=== PATIENT | male | born 1940 | race Caucasian/White ===

== ENCOUNTER 2017-04-17 09:25 | Inpatient (IN) | payer MEDICARE ==
[~2017-04-17] VITALS: Ht 172.7 cm; Wt 108.0 kg
[2017-04-20] MEDS ORDERED: GLIPIZIDE10 MG PO (17:27)
[2017-04-20] MEDS ORDERED: CARVEDILOL3.125 MG PO (17:28)
[2017-04-20] MEDS ORDERED: LIPITOR80 MG PO (17:29)
[2017-04-20] MEDS ORDERED: LISINOPRIL5 MG PO (17:29)
[2017-04-20] MEDS ORDERED: FLOMAX0.4 MG PO (17:29)
[2017-04-20] MEDS ORDERED: ALLOPURINOL100 MG PO (17:29)
[2017-04-20] MEDS ORDERED: OXYBUTYNIN CHLO15 MG PO (17:30)
--- NOTE | 2017-04-28 19:01 | NUR ---
PREADMIT PT CARE NOTE THIS IS A 77 YEAR OLD MALE PT SCHEDULED FOR A RIGHT TOTAL HIP REPLACEMENT ON 05/04/[address] JAZMYNE ACEVEDO. PT LIVES ALONE IN HIS RV [address]. STATES HE IS GETTING A SHOWER CHAIR AND A HANDHELD SHOWER HEAD. STATES HE IS NEEDING A FWW AND IN HOME MEDICAL IS WHERE HE WANTS IT FROM. HIS RV IS VERY CLOSE TO HIS GRANDSONS HOME AND HE WILL BE HELPING HIM. PT WANTS HIS PHYSICAL THERAPY SET UP FOR [facility] PT IN [facility] WITH JAIDEN FRANCO. DENIED FURTHER QUESTIONS, CONCERNS OR ISSUES, WILL FOLLOW HIM WHILE HE IS IN THE HOSPITAL.
[2017-05-04] MEDS ORDERED: LEVAQUIN750 MG PO (09:36)
--- NOTE | 2017-05-04 09:44 | NUR ---
05/04/17 0944 Vianca Melton 0931 TO PACU. AWAKENS TO VOICE. DENIES C/O. PROCEDURE CANCELLED. 0938 HR JIMBO TO 38, MONITOR AND BY PALPATION CONFIRMED. DENIES SOB, CHEST PAIN OR PRESSURE. 0940 HR INCREASED 70'S WITHOUT STIMULATION. CONT TO DENY C/O.
--- NOTE | 2017-05-04 10:07 | NUR ---
PT IS BACK TO FROM PACU. PT DID NOT RECIEVE HIS NEW HIP DUE TO A DRAINING PILONIADL CYST. HIS LAST SPINAL LEVEL WAS MEASURED AT A T10. PT HAS TO MEET DC CRITERIA IN ORDER TO BE DISCHARGED HOME. PT IS GIVEN COFFEE AND CHOCOLATE PUDDING. NO OTHER C/O'S AT THIS TIME. WILL REASSESS WITHIN THE HOUR.
--- NOTE | 2017-05-04 11:27 | NUR ---
PT REPORTS STILL BEING NUMB, HE IS UNABLE TO WIGGLE HIS TOES OR MOVE HIS LEGS. PT'S SPINAL LEVEL IS STILL AT A T10. NO C/O'S PAIN.
--- NOTE | 2017-05-04 11:30 | NUR ---
RN JUST IN TO SEE PATIENT. GOT REPORT FROM RN. PATIENT IN BED. PATIENT IS STILL NUMB. NO NEEDS AT THIS TIME.
--- NOTE | 2017-05-04 12:46 | NUR ---
PT SITTING UP FINISHING HIS LUNCH. NO C/O'S PAIN. SPINAL LEVEL REMAINS AT A T10. PT CAN SLIGHTLY MOVE HIS RIGHT LEG, BUT REPROTS THAT HE IS STILL NUMB FROM THE WAIST DOWN.
--- NOTE | 2017-05-04 13:40 | NUR ---
PT CAN WIGGLE HIS LEGS, BUT NOT HIS TOES YET. SPINAL LEVEL IS AT A T11. NO C/O'S AT THIS TIME. PT IS GOING TO BE TRANSFERRED TO ROOM 116 ON MS FOR OBSERVATION OVER NIGHT. BROTHER IS AT THE BEDSIDE AND WILL BE WALKING WITH US DOWN TO HIS ROOM.
--- NOTE | 2017-05-04 14:30 | NUR ---
PATIENT TRYING TO VOID. FRESH ICE WATER GIVEN NO NEEDS AT THIS TIME.
[2017-05-04] MEDS ORDERED: PLAVIX75 MG PO (15:16)
[2017-05-04] MEDS ORDERED: CLOPIDOGREL75 MG PO (15:20)
--- NOTE | 2017-05-04 17:40 | NUR ---
PATIENT RESTING IN BED WATCHING TV. ENCOURAGED PATIENT TO TRY TO VOID. NO OTHER NEEDS AT THIS TIME.
--- NOTE | 2017-05-04 18:01 | NUR ---
NOT OUT OF BED. EPIDURAL GIVEN THIS MORNING. LEGS NUMB. REGULAR DIET. TOLERATING WELL. UNABLE TO HAVE SURGERY D/T ABSCESS AT BASE OF SPINE. DRAINING SLIGHTLY SEROUS DRAINAGE. ROOM AIR. HOME TOMORROW. DUE TO VOID.
--- NOTE | 2017-05-04 19:50 | NUR ---
PT LAYING IN BED, WATCHING TV. FLAT AFFECT, BUT PLEASENT DEMEANOR. PT HAS NOT VOIDED SINCE ARRIVING TO THE FLOOR, BLADDER SCAN AT APPROX 1830 TODAY SHOWED >450MLS IN BLADDER, PER DAYSTAN RN. DR ACEVEDO NOTIFIED OF PT'S URINE RETENTION, NEW ORDER FOR HAIDER PLACEMENT RECIEVED, ALSO VERIFIED THAT PT IS ORDERED TO BE SALINE LOCKED. PT DENIES PRURITIS. DENIES PAIN.
--- NOTE | 2017-05-04 20:16 | NUR ---
EDUCATED PT ON ELIMINATION AND NEED FOR A HAIDER AT THIS TIME. ASSISTED PT TO BATHROOM TO ATTEMPT TO VOID BEFORE PLACING HAIDER. PT VERY UNSTABLE ON FEET. REQUIRED 2 PERSON ASSIST TO BATHROOM. PT USES RAINEY, BED, COUNTERS, TO STABLAIZE HIMSELF, WELL HIS CANE. PT UNABLE TO VOID. WILL PLACE HAIDER.
--- NOTE | 2017-05-04 20:44 | NUR ---
HAIDER PLACED, >850MLS URINE OUT AFTER PLACEMENT. PT ON AND OFF CONFUSED AT TIMES. UNAWARE THAT HE IS IN THE HOSPITAL IN [place]. STATES "IN [facility], I GUESS," WHEN ASKED WHERE HE IS BY THE RN. PT ALSO ASKING RN TO GET HIS "WATCH OUT OF THE DRESSER," WHILE POINTING AT A BLANK WALL. ATTEMPTED TO RE-ORIENT PT. PT IS PLEASENT AND COOPERATIVE. BED ALARM ON, DOOR AND CURTAINS OPEN FOR SAFETY. DR ACEVEDO NOTIFIED OF CHANGE IN LOC. NARCAN GIVEN TO RULE OUT NARCOTIC INDUCED CONFUSION.
--- NOTE | 2017-05-04 21:23 | NUR ---
NO CHANGE IN MENTATION SO FAR AFTER GIVING NARCAN. DR ACEVEDO NOTIFIED. CHECKED BS. BS 173, WHICH PT REPORTS IS "IN MY NORMAL RANGE." PT ON AND OFF ORIENTED, HE SEEMS WNL AT TIMES AND THEN WILL TALK ABOUT SOMETHING COMPLETLY NOT RELEVANT TO CURRENT TIME. WILL CONTINUE TO MONITOR CLOSELY. HE REMAINS PLEASENT AND COOPERATIVE. HAIDER DRAINING FREELY.
--- NOTE | 2017-05-04 21:35 | NUR ---
PT APPEARED TO BE SLEEPING. O2 SAT 88% ON RA, PLACED ON 1L O2 VIA NC, SATS CAME UP TO MID 90%'S. WILL CONTINUE TO MONITOR.
--- NOTE | 2017-05-04 22:55 | NUR ---
PT APPEARS TO BE SLEEPING. RR WNL AND UNLABORED. O2 SAT 93% ON 1L VIA NC. HR 86.
--- NOTE | 2017-05-05 00:02 | NUR ---
PT'S PULSE OXIMETER ALARMING. RN ENTERED PT'S ROOM. PULSE OXIMETER UNATTACHED TO PT, NC ON TOP OF PT'S HEAD. PT STATED "I HAVE TO GO PEE." PT RE-ORIENTED PT AND EXPLAINED THAT HE HAS A HAIDER CATH IN PLACE. PT RE-ORIENTED EASILY. RE-ADJUSTED PT IN BED, BED ALARM ACTIVATED FOR SAFETY. CALL LIGHT IN REACH. GAVE FRESH ICE WATER. ASSISTED PT WITH TV REMOTE. PT HAS NO FURTHER NEEDS.
--- NOTE | 2017-05-05 01:12 | NUR ---
PT AWAKE, LAYING IN BED, WATCHING TV. LOC WNL AT THIS TIME. ALERT AND ORIENTED X4. PT HAS NO NEEDS. CALL LIGHT IS IN REACH. HAIDER DRAINING FREELY.
--- NOTE | 2017-05-05 02:42 | NUR ---
NURSE NOTIFIED RE VITAL SIGNS/TEMP.
--- NOTE | 2017-05-05 02:46 | NUR ---
PT APPEARS TO BE SLEEPING. RR WNL AND UNLABORED. LAYING ON LEFT SIDE. O2 SAT 96% ON 1L VIA NC. LIGHTS AND TV OFF IN ROOM.
--- NOTE | 2017-05-05 04:26 | NUR ---
PT APPEARS TO BE SLEEPING. RR WNL AND UNLABORED. O2 SAT 97% ON 1L VIA NC. LIGHTS AND TV OFF IN ROOM.
--- NOTE | 2017-05-05 04:46 | NUR ---
BED ALARM ACTIVATED IN PT ROOM. PT WAS JUST MOVING HIMSELF AROUND IN BED AND REACHED OVER FOR HIS CELL PHONE. PT ALERT AND ORIENTED X4 AT THIS TIME. HE IS WATCHING TV. HAS CALL LIGHT IN REACH. NO FURTHER NEEDS AT THIS TIME.
--- NOTE | 2017-05-05 05:23 | NUR ---
PLACED HAIDER AND HAD 850MLS OF ORANGE COLORED URINE OUT. PT CONFUSED ON AND OFF BEGINNING OF SHIFT. NARCAN GIVEN ONE TIME TO CONFUSION. CONFUSION HAS CLEARED THIS MORNING, CURRENTLY PT IS ALERT AND ORIENTED X4. 2 PERSON ASSIST, UNSTABLE OF FEET LAST NIGHT. DENIES PAIN. TEDS, SCD'S IN PLACE. SALINE LOCKED, IV FLUSHES WELL. PT HAS BEEN PLEASENT AND COOPERATIVE. BED ALARM ON FOR SAFETY.
--- NOTE | 2017-05-05 07:30 | NUR ---
2 SHELLIE ASSIST FROM BED TO CHAIR. TALKED TO PATIENT ABOUT SHOWERING THIS AM AFTER BREAKFAST. WASH CLOTH FOR HANDS AND FACE.
--- NOTE | 2017-05-05 08:09 | NUR ---
PT ASSISTED UP TO RECLINER WITH 2PA AND CANE. PT REPORTS USING FURNITURE AND CANE TO AMBULATE THROUGH HOME. BREAKFAST SET UP FOR PATIENT. ABLE TO BEAR WEIGHT EVENLY. SPINAL COMPLETED AT 0800. WILL AWAIT DISCHARGE PLAN FROM SURGEON TODAY. NO COMPLAINTS.
--- NOTE | 2017-05-05 09:44 | NUR ---
ASSISTED PT INTO SHOWER WITH ARTIFICIAL LEATHER CALENDER OPERATOR. PT REPORTS HE "SITS IN RECLINER ALL DAY AT HOME WITH BATHROOM BREAKS ONLY" AND "I SHOWER WEEKLY". EDUCATED PATIENT ON HYGEINE IMPORTANCE AND NEED TO GET EXERCISE ROUTINELY TO PREVENT PNEUMONIA. PT RESISTANT TO EDUCATION. BROTHER HERE TO VISIT, BUT LEFT AND WILL RETURN AT 1015. PHYSICAL THERAPY PLANS TO WORK WITH PATIENT AT 1000. IV REMOVED. PT URNATED 325ML INTO URINAL.
--- NOTE | 2017-05-05 09:52 | NUR ---
patient up to shower with assist. patient dressed in cloths for home. waiting on PT. call button in reach. no other needs at this time.
== END 2017-05-05 10:50 | disposition home or self-care (01) | DRG 554 ==
LOC: DSVR 05-04 06:15 → MS 05-04 08:45
PROVIDERS: ADMIT Specialist
DX: M16.12 Unilateral primary osteoarthritis, left hip (principal); E78.5 Hyperlipidemia, unspecified; I12.9 Hypertensive chronic kidney disease with stage 1 through stage 4 chronic kidney disease, or unspecified chronic kidney disease; E11.22 Type 2 diabetes mellitus with diabetic chronic kidney disease; N18.9 Chronic kidney disease, unspecified; Z79.4 Long term (current) use of insulin; L05.91 Pilonidal cyst without abscess
CPT/HCPCS: 01214; 97161; 99406; J0690; J1100; J2250; J2274; J2310; J2405; J2704; J2765; J3010; J7120

== ENCOUNTER 2017-05-27 08:09 | Day surgery (SDC) | payer MEDICARE ==
[~2017-05-27] VITALS: Ht 172.7 cm; Wt 108.0 kg
[~2017-05-27 08:09] MED LIST: ALLOPURINOL100 MG PO; CARVEDILOL3.125 MG PO; CLOPIDOGREL75 MG PO; FLOMAX0.4 MG PO; GLIPIZIDE10 MG PO; LEVAQUIN750 MG PO; LIPITOR80 MG PO; LISINOPRIL5 MG PO; OXYBUTYNIN CHLO15 MG PO; PLAVIX75 MG PO
--- NOTE | 2017-05-27 09:30 | NUR ---
05/27/17 0929 Gabbie Ceja 0953-PATIENT ARRIVED TO PACU ON 6L OM O2 SAT 96% PATIENT NONAROUSABLE SR. 0925-PATIENT REACTIVE TO VOICE BP INCREASING TO 90'S REACHING FOR MASK EDUCATED ABOUT LEAVING HAND DOWN. DROWSY
--- NOTE | 2017-06-03 10:10 | OR ---
[facility] [address], [place] [address] Signed DATE OF OPERATION: 05/27/2017 SURGEON: Angela Melgoza MD PREOPERATIVE DIAGNOSIS: Pilonidal cyst. POSTOPERATIVE DIAGNOSIS: Pilonidal cyst. PROCEDURE: Pilonidal cystectomy. ESTIMATED BLOOD LOSS: None. INDICATIONS: Xavier is a 77-year-old, obese, diabetic gentleman who came in for his right hip replacement. When they were positioning him on the table, they realized he had a draining pilonidal cyst. Consequently, his hip replacement was canceled and he was asked to see me as a general surgeon for treatment of his pilonidal cyst. In the office, he comes with his four-point cane. We looked at the area and you could see the pit in the midline. Fortunately, it is not infected at this time. I explained to Xavier the nature of pilonidal cyst and need to excise that area with an elliptical incision and we will allow the wound to heal in secondarily from the bottom up. Once that is healed, he will be able to have his hip replacement. He understands there is risk of surgery including, but not limited to bleeding, infection, scarring, change in contour of the skin and recurrent pilonidal cyst. He had expressed understanding and wished to proceed. PROCEDURE NOTE: I met with Xavier in our preop area. We reviewed his above findings. After this, he was taken into the operating room and we placed him in the prone position with appropriate padding and monitoring. He was given monitored anesthesia care per our nurse tool and die designer. He was also given preoperative antibiotics and subcutaneous heparin. SCDs were utilized. We had him off the Plavix for 5 days. He was then prepped and draped in the usual sterile fashion. We could easily identify the pit in the midline of his gluteal crease. Local anesthetic was copiously injected in and around the lesion. A vertical elliptical incision was made around the lesion with the help of a 15 blade knife. This was carried down and around the lesion with the help of cautery all the way down to the level of the coccyx. All the tissue around it was quite healthy. Electronically Signed By: ANGELA MELGOZA MD 06/03/17 1010 PATIENT NAME: XAVIER FRANCO OPERATIVE REPORT DATE OF : 44 PHYSICIAN: ANGELA MELGOZA MD REPORT #: [id number] REPORT IS CONFIDENTIAL AND NOT TO BE RELEASED WITHOUT AUTHORIZATION [facility] [address], [place] [address] Signed Fortunately, there was no sinus tracts that travelled off the midline. The entire specimen was thus removed. Some additional local anesthetic was injected in the base of the wound. After this, the wound was irrigated and suctioned out until clear. The wound was packed with saline soaked gauze and covered with a dry ABD and dry underwear. Xavier was then rotated onto his hospital bed and taken to the recovery room in stable condition. MD KYLE Mccarty/PAULINEL /[id number] cc: MD Diego PatelehMD Fidencio Jacques FNP Electronically Signed By: ANGELA MELGOZA MD 06/03/17 1010 PATIENT NAME: XAVIER FRANCO FREDERIC OPERATIVE REPORT DATE OF : 44 PHYSICIAN: ANGELA MELGOZA MD REPORT #: [id number] REPORT IS CONFIDENTIAL AND NOT TO BE RELEASED WITHOUT AUTHORIZATION
== END 2017-05-27 11:00 | disposition home or self-care (01) ==
LOC: DS 08:09 → OPS 08:09 → DS 08:45
PROVIDERS: Colon & Rectal Surgery
PROC: 0HB8XZZ Excision of Buttock Skin, External Approach (ICD-10-PCS; principal; 2017-05-27 08:45)
DX: L05.91 Pilonidal cyst without abscess (principal); I13.0 Hypertensive heart and chronic kidney disease with heart failure and stage 1 through stage 4 chronic kidney disease, or unspecified chronic kidney disease; E11.22 Type 2 diabetes mellitus with diabetic chronic kidney disease; N18.1 Chronic kidney disease, stage 1; I50.9 Heart failure, unspecified; K21.9 Gastro-esophageal reflux disease without esophagitis; E11.40 Type 2 diabetes mellitus with diabetic neuropathy, unspecified; M10.9 Gout, unspecified; G47.33 Obstructive sleep apnea (adult) (pediatric); E78.00 Pure hypercholesterolemia, unspecified; I25.10 Atherosclerotic heart disease of native coronary artery without angina pectoris; Z90.89 Acquired absence of other organs; Z88.0 Allergy status to penicillin; Z88.8 Allergy status to other drugs, medicaments and biological substances; Z98.890 Other specified postprocedural states; Z79.899 Other long term (current) drug therapy
CPT/HCPCS: 00910; 80048; 85025; 88304; J1644; J2250; J2704; J3010; J7120

== ENCOUNTER 2017-12-14 06:50 | Inpatient (IN) | payer MEDICARE ==
--- NOTE | 2017-12-01 15:14 | NUR ---
PATIENT HERE TODAY FOR PREADMISSION APPOINTMENT. HE IS SCHEDULED FOR A RIGHT TOTAL HIP REPLACEMENT ON 12/14/17. HIS GRANDSON IS WITH HIM TODAY AND STATES HE WILL BE THE ONE TO TAKE HIM HOME WHEN HE IS DISCHARGED. THE PATIENT REPORTS LIVING IN A 5TH WHEEL TRAVEL TRAILER AND HAS 4 STEPS INTO THE TRAILER AND 3 STEPS UP TO THE BEDROOM AND BATHROOM AREA. HE HAS A NEW FRONT WHEELED WALKER AT HOME. WE SPOKE REGARDING NEEDING A RAISED TOILET SEAT. HIS GRANDSON STATES HE CAN LOOK INTO THAT FOR HIM. HE REPORTS HAVING A SEAT IN THE SHOWER ALREADY. HE WOULD LIKE TO HAVE PHYSICAL THERAPY SET UP TO COME TO THE HOME FOR THE FIRST FEW WEEKS AND THEN TRANSITION TO THE PHYSICAL THERAPY IN [facility]. THIS INFORMATION WILL BE SENT TO DR KRISTINA LEBRON AND KAYCE PLANNING FOR FURTHER FOLLOW UP.
[~2017-12-14] VITALS: Ht 172.7 cm; Wt 98.9 kg
[~2017-12-14 06:50] MED LIST changes: +ASPIR-LOW81 MG PO; +CENTRUM SILVER1 EAC3 PO
--- NOTE | 2017-12-14 11:01 | NUR ---
12/14/17 1101 Rsoemary Abraham 1033 PT ARRIVES TO PACU, ORAL AND NASAL AIRWAY IN PLACE. SATS 100% ON 10L PER MASK, BREATHING EVEN AND NON LABORED. PLACED ON ALL MONITORS. CMS INTACT TO RIGHT LEG, FOOT COLD- SOCK AND BLANET APPLIED. BILATERAL SCD'S AND JANNIE HOES IN PLACE WITH ABDUCTOR PILLOW. 1042 XRAY COMPLETED. 1046 PT REACTIVE TO VOICE AND OPEN EYES, QUICKLY BACK TO SLEEP. ORAL AIRWAY REMOVED AT THIS TIME. NASAL IN PLACE DUE TO OBSTRUCTIVE SLEEP APNEA. 1053 CRYOCUFF PLACED TO RIGHT HIP, O2 DECREASED TO 6L PER MASK. PT MAINTAINING SATS OF 99%. PT DROWSY, AROUSES EASILY TO VOICE AND ANSWERING QUESTIONS WITH PROMPTING. DENIES PAIN, SPINAL LEVEL T9, NO MOVEMENT IN LOWER EXTREMITIES. NO CHANGE IN CMS. PT DENIES NAUSEA, CONTINUE TO MONITOR PT. ABD SOFT AND NON DISTENDED. PT BREATHING EVEN AND NON LABORED ALTHOUGH INTERMITTENT SNORING.
--- NOTE | 2017-12-14 11:19 | NUR ---
PT SEEMED ALERT, ORIENTED AND EXPRESSED GREAT CONFIDENCE IN DR ACEVEDO. HAD A GOOD CONVERSATION WITH PT, OVER ALL PT APPEARED TO BE PREPARED AND HAD FEW QUESTIONS. EXTENDED A BLESSING, WILL FOLLOW NEEDED
--- NOTE | 2017-12-14 11:54 | NUR ---
PT TO FLOOR FROM PACU AT 1130. RECIEVED REPORT AT BEDSIDE FROM CHRISTINA LANGE. PT AWAKE, ALERT, ORIENTED X 4. DENIES PAIN. ORIENTED PT TO ROOM, CALL SYSTEM. DRESSING TO RIGHT HIP C/D/I.
--- NOTE | 2017-12-14 12:47 | NUR ---
PT SITTING UP IN BED, EATING MASHED POTATOES AND APPLESAUCE, WELL A ROLL. PT DENIES NAUSEA. TOLERATING REGULAR DIET WELL. DENIES PAIN. PEDAL PULSES STRONG. NUMBNESS TO FEET, TOES, LOWER LEGS, AND APROXIMATELY 1/2 OF UPPER LEGS. GROSS MOVEMENT TO ANKLES, NOT YET ABLE TO WIGGLE TOES.
--- NOTE | 2017-12-14 13:47 | NUR ---
PT IN BED, ABLE TO WIGGLE TOES, MOVE ANKLES. PEDAL PULSES STRONG. RIGHT HIP DRESSING C/D/I. PT STILL HAS NUMBNESS TO LOWER LEGS AND FEET/TOES, SPINAL RESOLVING. PT REMAINS ON 2L 02 VIA WY, SAT 93%. DR. BRIDGES IN TO SEE PT.
[2017-12-14] MEDS ORDERED: SODIUM BICARBO650 MG PO (14:02)
[2017-12-14] MEDS ORDERED: OXYBUTYNIN CHLOR5 MG PO ×2 (14:03→15:53)
[2017-12-14] MEDS ORDERED: TAMSULOSIN HCL0.4 MG PO (14:04)
--- NOTE | 2017-12-14 15:09 | NUR ---
PT IN BED. ABLE TO MOVE TOES, FEET, ANKLES. HAS NUMBNESS TO FEET, TOES, LATERAL LOWER LEGS. SPINAL RESOLVING. PT DENIES URGE TO VOID. PT DENIES PAIN. DRESSING TO RIGHT HIP C/D/I. PEDAL PULSES STRONG, CAPILARY REFILL LESS THAN 3 SECONDS.
--- NOTE | 2017-12-14 15:54 | NUR ---
MED REC COMPLETE
--- NOTE | 2017-12-14 17:45 | NUR ---
PATIENT UNABLE TO VOID AT THIS TIME.
--- NOTE | 2017-12-14 18:13 | NUR ---
PT UNABLE TO VOID. BLADDER SCAN SHOWED 706. PLACED 16 FR HAIDER CATHETER, WHICH IS DRAINING DARK YELLOW URINE. PT TOLERATED PLACEMENT WELL. PT TOLERATING DIABETIC, CARDIAC DIET WELL. PT DENIES NAUSEA. DRINKING FLUIDS WELL. CIRCULATION AND MOVEMENT TO BLE INTACT, IS SENSATION. SPINAL RESOLVED.
--- NOTE | 2017-12-14 18:23 | NUR ---
PT DRINKING PO FLUIDS WELL. SALINE LOCKED IV.
--- NOTE | 2017-12-14 18:56 | NUR ---
PT HAD A RIGHT TOTAL HIP REPLACEMENT TODAY. HAD A DURAMORPH SPINAL. CMS NOW INTACT. PEDAL PULSES STRONG. DRESSING TO RIGHT HIP C/D/I. GOT UP WITH FWW WITH PHYSICAL THERAPY, AMBULATED WITH FWW FROM BED TO BATHROOM, THEN BACK TO BED. PT TOLERATED CARDIAC, ADA DIET VERY WELL. NO C/O NAUSEA. PT DENIED PAIN THROUGHOUT SHIFT. PT UNABLE TO VOID, 706 CC SHOWN ON BLADDER SCAN, 16 FR HAIDER CATHETER PLACED FOR URINARY RETENTION PER ORDERS. PT TAKING PO FLUIDS WELL, IV SALINE LOCKED.
--- NOTE | 2017-12-14 19:25 | NUR ---
PATIENT IS RESTING IN BED WITH EYES CLOSED. RR16. PULSE OX READINGS WNL.
--- NOTE | 2017-12-14 21:13 | NUR ---
UPON ENTERING THE ROOM THE PATIENT WAS RESTING WITH EYES CLOSED. PATIENT DID NOT RESPOND TO HIS NAME BEING CALLED. IN REPORT IT WAS RECVEIVED THAT PATIENT IS [place]. PATIENTS NAME CALLED VERY LOUDLY. PATIENT STILL DID NOT RESPOND. PATIENTS STERNUM THEN RUBBED. PATIENT OPENED HIS EYES SLIGHTLY. PATIENT REPOSITIONED IN BED AND SAT UP IN HIGH FOWLERS. PATIENT AGAIN APPEARED TO BE SLEEPING. PATIENTS STERNUM AGAIN RUBBED AND HIS NAME CALLED VERY LOUDLY. PATIENT STARTLED AWAKE. AFTER PATIENT WAS FULLY AWAKE PATIENT WAS ABLE TO PARTICIPATE IN ASSESMENT. PATIENT ASSESMENT COMPLETED. PATIENTS EVENING MEDICATIONS GIVEN PER ORDER. PATIENT DENIES ANY PAIN. VITALS TAKEN AND RECORDED. PATIENT HAS SCDS, TEDHOSE, HEEL PROTECTORS, AND WEDGE IN PLACE. CRYO REFILLED AND PLACED ON RIGHT HIP. PATIENTS DRESSSING ON RIGHT HIP IS CLEAN DRY AND INTACT. PATIENT HAS PULSE OX IN PLACE. PATIENT IS ON 2L VIA NC. PATIENT IS AAOX3. PATIENT HAS SCOPE PATCH BEHIND RIGHT EAR. PATIENT HAS HAIDER IN PLACE AND OUPUT IS QS. PATIENT DENIES ANY FURTHER NEEDS AT THIS TIME. CALL LIGHT IN REACH.
--- NOTE | 2017-12-14 22:37 | NUR ---
PATIENT IS RESTING IN BED WITH EYES CLOSED. PATIENTS BREATHING IS EVEN AND UNLABORED, RR 16. PULSE OX READINGS ARE WNL. CALL LIGHT IN REACH.
--- NOTE | 2017-12-15 01:46 | NUR ---
PATIENTS 0200 MEDICATIONS GIVEN PER ORDER. PATIENTS VITALS TAKEN AND RECORDED. PATIENT DENIES ANY PAIN AT THIS TIME. PATIENT REMAINS ON 2L VIA NC. PATIENT REPOSITIONED IN BED. PATIENT CONTINUES TO HAVE TEDHOSE, SCDS, WEDGE, AND HEEL PROTECTORS IN PLACE. PATIENTS CRYO REFILLED WITH ICE PER DIRECTIONS. PATIENT DENIES ANY FURTHER NEEDS. PATIENT IS AAOX3. CALL LIGHT IN REACH. HAIDER IN PLACE OUPUT QS.
--- NOTE | 2017-12-15 04:15 | NUR ---
PATIENT IS RESTING IN BED WITH EYES CLOSED. BREATHING IS EVEN AND UNLABORED, RR 16. PULSE OX READINGS ARE WNL.
--- NOTE | 2017-12-15 05:36 | NUR ---
PATIENT RESTED WELL THROUGHOUT THE SHIFT. PATIENT IS ON A CARDIAC/ADA DIET AND TOLERATING IT WELL, NO COMPLAINTS OF NAUSEA. PATIENT IS ON PULSE OX. PATIENT IS ON 2L VIA NC. PATIENT HAS SCDS, HEEL PROTECTORS, AND TEDHOSE ON BILAT LOWER EXT. PATIENT HAS WEDGE IN PLACE WHILE IN BED. PATIENT IS SL AND IV FLUSHES WELL. PATIENT HAS CRYO APPLIED TO RIGHT HIP. PATIENTS DRESSING ON RIGHT HIP IS C/D/I, AND NO DRAINAGE IS NOTED. PATIENT HAS SCOPE PATCH BEHIND RIGHT EAR. PATIENT IS AAOX3 AND USES CALL LIGHT APPROPRIATELY. PATIENT HAS NOT BEEN OUT OF BED THIS SHIFT.
--- NOTE | 2017-12-15 06:29 | NUR ---
PATIENT REMAINS VERY DROWSY NUT IS EASY TO WAKE. PATIENTS HAIDER REMOVED. PATIENTS VITALS TAKEN AND RECORDED. PATIENTS MORNING MEDICATIONS GIVEN PER ORDER. PATIENT DENIES ANY PAIN. CRYO REFILLED WITH ICE AND APPLIED TO RIGHT HIP. PATIENT REPOSITIONED IN BED. PATIENT CONTINUES TO WEAR SCDS, TEDHOSE, AND HEEL PROTECTORS. WEDGE IN PLACE. PATIENTS DRESSING IS C/D/I AND NO DRAINAGE NOTED. NO FURTHER NEEDS NOTED. CALL LIGHT IN REACH.
--- NOTE | 2017-12-15 06:59 | NUR ---
PATIENT HAS LOW URINE OUPUT. PLACED CALL TO MD. NEW VERBAL ORDERE RECEIVED. VERIFIED ORDER USING THE READBACK METHOD. WILL PUT ORDER INTO PLACE.
--- NOTE | 2017-12-15 07:37 | OR ---
[facility] [address], [place] [address] Signed DATE OF OPERATION: 12/14/2017 SURGEON: Ruth Valenzuela MD PREOPERATIVE DIAGNOSIS: Degenerative joint disease, right hip. POSTOPERATIVE DIAGNOSIS: Degenerative joint disease, right hip. PROCEDURE PERFORMED: Right total hip arthroplasty. FLOUR MIXER: AMANDA Estrada. Elsie was present in critical positioning, retraction, and wound closure. ANESTHESIA: Spinal. BLOOD LOSS: 200 mL. IMPLANTS: Secure-Fit advanced size 8 stem, 60 PSL cup, +0 ceramic head. BRIEF HISTORY: Nitish is a 77-year-old gentleman with pain and stiffness in his hip. Risks and benefits of operative treatment discussed with him and he elected to proceed. DESCRIPTION OF PROCEDURE: Once consent was obtained, he was taken to the operating room. After adequate anesthesia was placed in left lateral decubitus position, all downside pressure points well padded. The right hip was prepped and draped in standard sterile fashion. After placing an axillary roll, the hip was approached through an anterior lateral approach and a 6-inch incision was centered over the trochanter. This carried through skin and subcutaneous tissue. IT band was divided longitudinally. The vastus lateralis was then split from the tip of the trochanter distally and elevated subperiosteally around the level of the lesser trochanter. The gluteus minimus and capsule were split sharply. Gluteus medius was split bluntly from the tip of the trochanter to the acetabular rim. Electronically Signed By: RUTH VALENZUELA MD 12/15/17 0737 PATIENT NAME: NITISH FRANCO OPERATIVE REPORT DATE OF : 44 REPORT #: [id number] PHYSICIAN: RUTH VALENZUELA MD PCP: RUTH VALENZUELA MD REPORT IS CONFIDENTIAL AND NOT TO BE RELEASED WITHOUT AUTHORIZATION [facility] [address], [place] [address] Signed This was then peeled off the anterior neck where large osteophytes were encountered. There was a large loose body in the anterior pouch. The periacetabular soft tissue was removed. The acetabulum was reamed starting at 44, went up to 60, 60 was found to be well fitting. The 60 cup was then impacted in 45 degrees of abduction and 15-20 degrees of anteversion. The bone was quite soft, so we placed two screws in the posterior quadrant. The acetabular liner was then impacted in position. We then removed the anterior and anterior inferior osteophytes sharply using the curved osteotome and the rongeur. Attention was then turned to the proximal femur, which was opened using a cookie cutter, followed by the Charnley awl. It was then sequentially reamed up to 9, 10 and broached up to an 8. The 8 was found to be quite well fitting. The trial location of the broach was left in position. Trial neck and head were placed. The hip was reduced. Excellent range of motion with 110 degrees of flexion and 45 of internal and external rotation with no impingement. Shuck test was negative. The hip was dislocated and trial was removed. The final stem was impacted until was the same level as the broach handle. The +0 ceramic head was then impacted onto the neck after cleaning it. The hip was then reduced taken through a range of motion as noted above and found to be stable. The wound was copiously with 2 L of antibiotic irrigation. The periarticular soft tissues were injected with 100 mL ropivacaine, Toradol mixture. The capsule was then closed using #1 Vicryl. The vastus and IT bands were closed independently using #1 Stratafix, subcutaneous tissue with 0 Stratafix, and the skin with vincent. The wound was dressed with a Mepilex Ag dressing and Opsite. He was placed in abduction pillow. Taken to recovery room in satisfactory condition. All sponge, needle, and instrument counts were correct. Ruth Valenzuela MD BA/MODL /[id number] Copies: ~ Electronically Signed By: RUTH VALENZUELA MD 12/15/17 0737 PATIENT NAME: NITISH FRANCO OPERATIVE REPORT DATE OF : 44 REPORT #: [id number] PHYSICIAN: RUTH VALENZUELA MD PCP: RUTH VALENZUELA MD REPORT IS CONFIDENTIAL AND NOT TO BE RELEASED WITHOUT AUTHORIZATION
--- NOTE | 2017-12-15 08:06 | NUR ---
THIS RN TO ROOM TO RECIEVE HAND OFF REPORT FROM CHRISTINA MORALES (PM RN). PT DIFFICULT TO AROUSE. PT OPENS EYES AFTER 10 MINUTES OF STERNAL RUB STIMULATION. PT ORIENTED TO PLACE AND EVENT BUT UNABLE TO TELL TIME, DATE, OR HIS OWN BIRTHDAY. SLURRED SPEACH NOTED. PT O2 SATURATION AT 85% WHEN THIS RN ENTERED ROOM. PT PLACED ON 2 L O2 BY NC. O2 SATURATION MAINTAINING AT 95%. MD NOTIFIED. MD TO ROOM TO SEE PT. MD STATES NO ACTION NEEDED AT THIS TIME. THIS RN RETURNS TO ROOM. PT NOW AWAKENS TO VOICE. CONTINUES TO BE CONFUSED AND DISORITNED NOTED ABOVE. ASSESSMENT DONE. CMS INTACT, PT REPORTS "NORMAL" FEELING IN HIS TOES. PT DENIES PAIN AND NAUSEA. PT DRIFTS BACK TO SLEEP FREQUENTLY, AWAKENS TO LOUD VOICE AND TOUCH. BREAKFAST AT BEDSIDE. PT STATES HE WOULD LIKE TO EAT BUT QUICKLY FALLS ALSEEP. MEDICATIONS GIVEN. BED RAILS UP. BED ALARM ON. CALL LIGHT WITHIN REACH.
--- NOTE | 2017-12-15 09:00 | NUR ---
DR. GOEL CONTACTED REGARDING PTS LOW BLOOD PRESSURE. CARVADIOL HELD. MD TO BEDSIDE. DR. GOEL AT BEDSIDE. THIS RN WITH MD. BLOOD PRESSURE RETAKEN, CONTINUES TO BE 70'S OVER 40'S. MD TAKES MANUAL BP AND STATES SYTOLIC'S ARE IN THE 60'S. REQUSETS ADDITIONAL NS BOLUS AND HAIDER CATHETER TO BE REPLACED. REQUESTS SCOPOLOMINE PATCH TO BE REMOVED. REMOVED BY THIS RN. CHARGE NURSE NOTIFIED. CHARGE NURSE TO START PIV AND PLACE HAIDER. STATES PT WILL BE TRANSFERED TO CCU. PIPELINER NOTIFIED. PT CONTINUES TO BE DIORIENTED AT TIMES. HEAD OF BED LOWERED. BED RAILS UP. CALL LIGHT WITHIN REACH. BED RAILS UP.
--- NOTE | 2017-12-15 10:00 | NUR ---
PLACED HAIDER CATHETER BACK. SENT URINE SAMPLE. STARTED NEW IV IN RIGHT HAND, FLUSHES WELL.
--- NOTE | 2017-12-15 10:42 | NUR ---
BOLUS' DONE INFUSING. BP NOW 111\59. PT AWOKE TO PUMP BEEPING AND WANTED TO GET UP. [id number] REORIENTED AND BACK TO SLEEP.
--- NOTE | 2017-12-15 10:58 | NUR ---
CCU RN CALLED TO GIVE REPORT. REPORT TAKEN. PT TRANSFERED TO CCU AT 1100.
--- NOTE | 2017-12-15 11:13 | NUR ---
77 YEAR OLD MALE PATIENT ADMITTED TO CCU FROM MED-SURG UNDER DR. GOEL AND DR. ACEVEDO WITH DX OF RTH ON 12/14, GEE/ HYPOTENSION/ AMS. PATIENT IS SOMEWHAT RESTLESS IS PULLING AT OXIMETER CORD AND IV TUBING. IS ABLE TO FOLLOW MOST COMMANDS. HAIDER CATH EMPTIENT FOR 10 ML. UROMETER PLACED. BP IS LOW. 80'S OVER 50'S. WILL NOTIFY DR. GOEL. IVF AT 125 ML/HR. O2 IS ON AT 2L PER NC. SCD'S ON, ABDUCTOR IN PLACE. JANNIE HOSE ON, HEEL PROTECTORS ON.
--- NOTE | 2017-12-15 11:19 | NUR ---
PT SON, SUSAN, CALLED AND UPDATED ON PT STATUS AND PLAN OF CARE. PT STATES HE IS PLANNING TO COME BY THIS AFTERNOON "ARROUND 6'OCLOCK." PTS SON VERBALIZES UNDERSTANDING OF UPDATE AND STATES HIS QUESTIONS HAVE BEEN ANSWERED.
--- NOTE | 2017-12-15 11:22 | NUR ---
PTS BLOOD PRESSURE UPON TRANSFER TO CCU WAS 83/50 MAP=58. CCU RN ASKED THIS RN TO NOTIFY . NOTIFIED AND STATES HE WILL PLACE ORDERS FOR CCU RNS.
--- NOTE | 2017-12-15 11:30 | NUR ---
ORDERS RECIEVED TO START LEVOPHED GTT BP REMAINS LOW. SEE VS CHARTED. BP IS BEING CHECKED Q 10 MIN. LEVOPHED GTT HUNG AT 4 MCG/MIN. PATIENT DENIES ANY TYPE OF PAIN. POLAR CARE CUBE FILLED WITH ICE, PAD IS ON RIGHT HIP WITH PILLOW CASE AND GOWN INBETWEEN SKIN AND PAD. MINIMAL SWELLING NOTED ON OF RIGHT HIP. NO DRAINAGE NOTED ON DRESSING.
--- NOTE | 2017-12-15 11:30 | NUR ---
IV DECREASED TO 75 ML/HR PER DR. GOEL ORDERS.
--- NOTE | 2017-12-15 12:00 | NUR ---
Joseluis PETTIT RN HERE TO PLACE PICC LINE.
--- NOTE | 2017-12-15 13:00 | NUR ---
IS ABLE TO FOLLOW MOST COMMANDS. NOT TRACKING WELL AT TIMES.
--- NOTE | 2017-12-15 13:36 | NUR ---
PICC INSERTION NOTE: ASKED BY DR. GOEL TO EVALUATE PATIENT FOR POTENTIAL PICC LINE PLACEMENT DUE TO NEEDING VASOPRESSOR THERAPY. AFTER REVIEWING THE CHART AND INTERVIEWING THE PATIENT, NO ABSOLUTE CONTRAINDICATIONS WERE IDENTIFIED. PATIENT'S GRANDSON SUSAN FRANCO WAS ALSO TALKED TO ON THE PHONE AND HE STATES HE HAS MEDICAL POA OVER HIS GRANDFATHER. VERBAL CONSENT WAS OBTAINED FROM PATIENT, ALTHOUGH IT WAS OF NOTE THAT PATIENT IS SLIGHTLY CONFUSED AT THIS TIME. CONSENT WAS ALSO OBTAINED FROM PATIEN'S GRANDSON OVER THE PHONE. PATIENT'S RIGHT ARM WAS EVALUTED FIRST AND THE BASILIC, BRACHIAL, AND CEPHALIC VEINS WERE ALL IDENTIFIED POTENTIAL SOURCES FOR A PICC LINE. THE BASILIC WAS ATTEMPTED FIRST, AND WAS NOTED TO BE GREATER THAN 8 FR VIA SITE RITE U/S. BASILIC VEIN WAS ACCESSED BUT UNABLE TO THREAD CATHETER INTO VEIN TWICE. THE CEPHALIC VEIN WAS THEN ATTEMPTED AND AGAIN IT TOOK 2 ATTEMPTS TO THREAD IV CATHETER INTO THE VEIN. AFTER THEADING THE IV CATHETER INTO THE VEIN, THE GUIDEWIRE, INTRODUCER AND PICC ALL INSERTED EASILY INTO THE VEIN WITHOUT DIFFICULTY. THE [employer] TIP VERIFICATION MAGNET WAS UTILIZED AND SHOWED THE TIP TO BE TRAVELING IN THE APPROPRIATE DIRECTION. A CHEST XRAY WAS TAKEN AND SHOWED THE TIP TO BE TRAVELING ACROSS TOWARDS THE LEFT, AND NOT IN THE APPROPRIATE SPOT FOR A PICC. THE PICC WAS THEN PULLED BACK AND STERILY RE-ADVANCED. A SECOND CHEST XRAY SHOWED IDEAL PLACEMENT IN THE SVC CONFIRMED BY DR. GOEL AND DR. ORLANDO. PATIENT TOLERATED THIS PROCEDURE WELL, AND IN FACT SLEPT THROUGH MOST OF IT. EDUCATION MATERIAL WAS LEFT WITH PATIENT AND PATIENT WAS ENCOURAGED TO ASK QUESTIONS REGARDING HIS PICC LINE.
--- NOTE | 2017-12-15 14:00 | NUR ---
SPONGE BATH GIVEN, DRAW SHEET CHANGED. DENIES PAIN.
--- NOTE | 2017-12-15 14:30 | NUR ---
RESTFUL. CONTINUE TO DENY PAIN. DRESSING TO RIGHT HIP INTACT. CRYO CUFF INTACT.
--- NOTE | 2017-12-15 15:41 | NUR ---
PHYS THERAPY HERE TO WORK WITH PATIENT.
--- NOTE | 2017-12-15 15:45 | NUR ---
STOOD AT BEDSIDE AND MARCHED IN PLACE WITH PHYS THERAPY. DENEIS FEELING LIGHTHEADED OR DIZZINESS. TOLERATED PHYS THERAPY WELL. DENIES PAIN. IS SOMEWHAT RESTLESS AT TIMES.
--- NOTE | 2017-12-15 16:24 | NUR ---
DR. ACEVEDO HERE TO SEE PATIENT. NO FUTHER ORDERS RECIEVED.
--- NOTE | 2017-12-15 16:45 | NUR ---
DR. GOEL UPDATED ON PATIENT. HAD EPISODE OF JIMBO W/PVCS. PATIENT IS W/O S/S.
--- NOTE | 2017-12-15 18:00 | NUR ---
LEVOPHED GTT OFF. DR. GOEL AWARE.
--- NOTE | 2017-12-15 19:22 | NUR ---
REPORT GIVEN. HOB ELEVATED.
--- NOTE | 2017-12-15 20:37 | NUR ---
PATIENT RESTING COMFORTABLY IN BED, BREATHING IS EVEN AND UNLABORED. O2 SATURATION IS 98% ON ROOM AIR. PATIENT DENIES PAIN AT THIS TIME. REPOSITIONED PATIENT IN BED. PATIENT DENIES NEEDS AT THIS TIME. ASSESSMENT DONE, DRESSING IS CDI, CMS INTACT. ALL ORDERS IN PLACE, CALL LIGHT WITHIN REACH.
--- NOTE | 2017-12-15 21:24 | NUR ---
PATIENT RESTING COMFORTABLY IN BED, BREATHING IS EVEN AND UNLABORED. O2 SATURATION IS 96% ON ROOM AIR. DENIES NEEDS AT THIS TIME, DENIES PAIN. CALL LIGHT WITHIN REACH, ALL ORDERS IN PLACE.
--- NOTE | 2017-12-15 22:00 | NUR ---
PATIENT RESTING IN BED, BREATHING IS EVEN AND UNLABORED. FLACC SCORE OF 0. CALL LIGHT WITHIN REACH, ALL ORDERS IN PLACE.
--- NOTE | 2017-12-15 23:39 | NUR ---
PATIENT RESTING COMFORTABLY IN BED, BREATHING IS EVEN AND UNLABORED. FLACC SCORE OF 0. CALL LIGHT WITHIN REACH, ALL ORDERS IN PLACE.
--- NOTE | 2017-12-16 00:21 | NUR ---
PATIENT RESTING COMFORTABLY, DENIES PAIN AT THIS TIME. DURING ASSESSMENT, PATIENT ID DISORIENTED TO PLACE AND STATES "WELL, I AM IN [place]." WHEN ASKED WHAT THE DATE IS, PATIENT STATES "IT IS November, TOMORROW IS September,." PATIENT UNDERSTANDS SITUATION OF HOSPITALIZATION. ALSO BEGAN TO FIDGIT WITH CORDS AND IV TUBING, EASILY RE-DIRECTED. PATIENT DENIES NEEDS AT THIS TIME. CALL LIGHT WITHIN REACH, ALL ORDERS IN PLACE. WITHIN VIEW OF RN FROM NURSE'S STATION.
--- NOTE | 2017-12-16 01:45 | NUR ---
PATIENT RESTING COMFORTABLY IN BED, BREATHING IS EVEN AND UNLABORED. FLACC SCORE OF 0. CALL LIGHT WITHIN REACH.
--- NOTE | 2017-12-16 03:04 | NUR ---
ASSISTED PATIENT TO BEDSIDE COMODE WITH 1PA/FWW. TOLERATING AMBULATION WELL, REQUIRES MINIMAL ASSISTANCE OUT OF BED. PATIENT UNABLE TO HAVE BOWEL MOVEMENT YET, IS PASSING FLATUS. NOW RESTING IN BED, BREATHING IS EVEN AND UNLABORED. DENIES FURTHER NEEDS, DENIES PAIN AT REST. CALL LIGHT WITHIN REACH, ALL ORDERS IN PLACE.
--- NOTE | 2017-12-16 04:30 | NUR ---
PATIENT RESTING COMFORTABLY IN BED, BREATHING IS EVEN AND UNLABORED. FLACC SCORE OF 0. CALL LIGHT WITHIN REACH.
--- NOTE | 2017-12-16 05:40 | NUR ---
RESTING COMFORTABLY, FLACC SCORE OF 0. CALL LIGHT WITHIN REACH.
--- NOTE | 2017-12-16 06:48 | NUR ---
PATIENT RESTING IN BED. DENIES PAIN AT THIS TIME, DENIES NEEDS. CALL LIGHT WITHIN REACH, ALL ORDERS IN PLACE.
--- NOTE | 2017-12-16 07:59 | NUR ---
REPORT RC'D FROM HOG COUNTER NURSE. PT RESTING IN BED WITH EYES CLOSED, NO ACUTE DISTRESS NOTED. NS INFUSING AT 75 ML/HR. SCD TO BLE, CRYO CUFF TO RIGHT HIP, AND ABDUCTION BRACE IN PLACE. LAST VITALS BP 117/67, MAP 79, HR 61, RR 13, AND SPO2 97 ON ROOM AIR.
--- NOTE | 2017-12-16 09:20 | NUR ---
PT RESTING IN BED COMFORTABLY. PICC LINE ASSESSED AND FLUSHED WITH HEPARIN, WNL. NS INFUSING AT 75 ML/HR. HAIDER IN PLACE, WNL, YELLOW COLORED URINE, AND QUANTITY SUFFICIENT. SCD, HEEL PROTECTORS, JANNIE HOSE, ABDUCTOR BRACE, AND CRYO CUFF IN PLACE. BREAKFAST AT ORDERED. PT'S BROTHER AT BEDSIDE.
--- NOTE | 2017-12-16 10:00 | NUR ---
PHYSICAL THERAPY IN ROOM TO AMBULATE PT. LINEN CHANGED AND ROOM CLEANED AT THIS TIME. DR. ACEVEDO IN ROOM TO ASSESS PT AND UPDATE PLAN OF CARE.
--- NOTE | 2017-12-16 10:50 | NUR ---
PT ASSISTED TO BSC, 1PA WITH FWW, TOLERATED WELL. PT ASSISTED BACK TO CHAIR AND AM ADLS PERFORMED.
--- NOTE | 2017-12-16 11:59 | NUR ---
DR. GOEL IN ROOM TO ASSESS PT AND UPDATE PLAN OF CARE.
--- NOTE | 2017-12-16 13:15 | NUR ---
IN ROOM TO REMOVED PT HAIDER. PT TOLERATED WELL. INSTRUCTED PT CALL WHEN FEELS THE NEED TO VOID. PT VERBALIZED UNDERSTANDING.
--- NOTE | 2017-12-16 13:25 | NUR ---
PT TRANSFERED TO [facility] SUR[facility]LO[facility] VIA CHAIR. ORIENTED TO ROOM AND CALL LIGHT. CRYO CUFF PLACED ON RIGHT HIP. PT DENIES NEED FOR PAIN MEDICATION AT THIS TIME. CALL LIGHT WITHIN REACH.
--- NOTE | 2017-12-16 13:47 | NUR ---
after speaking with pt regarding pain in right hip. determined pt was actually having pain with movement. rated pain 5/10. gave pt scheduled tylenol and 5mg oxycodone po.
--- NOTE | 2017-12-16 15:29 | NUR ---
PT CONTINUED TO COMPLAIN OF PAIN IN RIGHT HIP 10/29. GAVE 1 TAB OXYCODONE 5MG PO.
--- NOTE | 2017-12-16 15:59 | NUR ---
PT UP AND AMBULATING IN HALLWAY WITH PHYSICAL THERAPY. TOLERATING WELL.
--- NOTE | 2017-12-16 18:04 | NUR ---
pt hadnt voided since lund removal at 1315. pt unable to void. bladder scanned pt for 923ml. md contact. order given for straight cath. straight cathed pt using sterile technique. 1000ml drained of clear yellow urine. pt tolerated well.
--- NOTE | 2017-12-16 18:16 | NUR ---
pt transfered from ccu to medical floor. working with PT/OT. giving oxycodone for pain control. dressing c/d/i. pt unable to void after lund removal. straigt cath performed. 1000ml of clear yellow urine drained.
--- NOTE | 2017-12-16 21:30 | NUR ---
pt up to brp, voided and had small soft bm. back to bed, Requires 1-2 person assist and FWW, Back to bed, tolerated it well. Dressing in place R hip, cryocuff to area, heel protectors , wedge, elana hose, scds in place. Call light and fluids withing arms reach
--- NOTE | 2017-12-16 21:58 | NUR ---
PATIENT SETTLING IN FOR THE NIGHT. BLADDER SCAN NOT NEEDED AT THIS TIME PATIENT JUST VOIDED OVER 700MLS. PATIENT WAS HAVING 9/10 RT HIP PAIN WHEN AMBULATING TO THE BATHROOM. 10MG OXYCODONE GIVEN PO WITH 1GM PO TYLENOL. PATIENT HAS CRYO CUFF IN PLACE TO RT HIP, HEAL PROTECTORS ON. IV AND MIDLINE FLUSHED AND ARE WNL. CALL LIGHT IN REACH AND LIGHTS TURNED OUT AT PATIENT REQUEST.
--- NOTE | 2017-12-16 23:19 | NUR ---
PATIENT STILL AWAKE WATCHING TV. PAIN IS DOWN TO 4/10 AND PATIENT COMFORTABLE IF NOT MOVING AROUND A LOT. PATIENT TURNED OF TV AND SAID HE IS GOING TO TRY AND GET SOME SLEEP. LIGHTS TURNED DOWN AND CALL LIGHT IS IN REACH.
--- NOTE | 2017-12-17 01:30 | NUR ---
PATIENT CALLED TO USE THE URINAL AND VOIDED AND 850MLS. PATIENT HAS 9/10 RT HIP PAIN WITH MOVEMENT AND OXYCODONE 5MG X2 PO GIVEN. PATIENT REPOSITIONED AND WEDGE IS IN PLACE, HEAL PROTECTORS ARE ON, SCD'S ON, JANNIE HOSE TO RT LEG. PATIENT GOING TO TRY AND GET MORE SLEEP. CALL LIGHT IN REACH.
--- NOTE | 2017-12-17 03:00 | NUR ---
PATIENT RESTING QUIETLY, EYES CLOSED RESPIRATIONS EVEN AND REGULAR.
--- NOTE | 2017-12-17 03:15 | NUR ---
PATIENT CALL LIGHT ANSWERED TO USE THE URINAL. PATIENT HAD SOME DRIBBLING OF URINE AND HAD TO BE TURNED AND ATTENDS CHANGED. PATIENT RESTING NOW CALL LIGHT IN REACH.
--- NOTE | 2017-12-17 06:43 | NUR ---
PATIENT HAS SLEPT A FEW HOURS TONIGHT. 10MG OXYCODONE GIVEN X 3 THROUGH THE SHIFT WITH SOME RELIEF AND ABILITY TO SLEEP BETWEEN DOSES. PATIENT HAS HAD A LOT OF GAS THROUGH THE NIGHT AND IS VOIDING WELL UP TO ALMOST A LITER AT A TIME. PATIENT UP X 2 WITH 1PSBA AND FWW TO TRY AND HAVE A BOWEL MOVEMENT WITH ONLY A SMEAR RESULT. PATIENT UP IN THE RECLINER AT THIS TIME AND LAST MEDICATED CFOR PAIN JUST AFTER 6AM.
--- NOTE | 2017-12-17 09:50 | NUR ---
pt is sitting up in chair with feet elevated and call light in reach. pt complained of his hip feeling sore, I helped readjust him in the chair and readjusted his cryo. pt does not need anything else at the moment
--- NOTE | 2017-12-17 10:08 | NUR ---
PAIN IS STILL NOT WELL CONTROLLED AT THIS TIME. WILL CONTINUE TO WORK ON THAT. SBP WAS 101 MANUALLY. ALL LOBES ARE CLEAR, SOME EDEMA RIGHT HIP, NO OTHER EDMEA IN RIGHT LEG. RIGHT PEDIS PULSE +2, ABD SOUNDS ARE PRESENT, PT REFUSED MIRALAX THIS MORNING. DRESSING ON RIGHT HIP HAS SOME DRY SHADOWING ON IT. NO NEW CONCERNS AT THE MOMENT FOR THIS PT.
--- NOTE | 2017-12-17 12:00 | NUR ---
BS CHECKS HAVE BEEN D/C. PICC LINE TO BE PULLED. PT IS SITTING IN CHAIR WATCHING TV. NO NEW CONCERNS AT THIS TIME.
--- NOTE | 2017-12-17 12:30 | NUR ---
SPOKE WITH PATIENT IN ROOM. PATIENT LIVES IN [facility]. NORMALLY INDEPENDENT. HAS A GRANDSON CLOSE BY WHO WILL TRANSPORT HIM HOME AND TO PT. ALSO HE IS AVAILABLE TO HELP PATIENT IF NEEDS. PATIENT STATES HE HAS BUILT IN CHAIR AND HAND-HELD SHOWER HEAD IN SHOWER STALL. HE HAS FOUR STEPS UP TO HOME AND 3 SMALL STEPS INTO SLEEPING AREA. 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 PATIENT STATES HE HAS NEW 4WW WITH SEAT AT HOME. DISCUSSED THAT 2WW IS USUALLY WHAT IS USED POST-OP. HE STATES HE CAN BORROW HIS BROTHERS. HE STATES HE IS PLANNING ON OUTPATIENT THERAPY AT [facility] IN [place]. HE STATES HE DOES NOT WANT TO GO ANYWHERE ELSE BUT HOME AT DISCHARGE. CALLED [phone]. THEY TOOK INFORMATION AND SCHEDULED AN APPOINTMENT FOR 12/28/17 AT 1100. THEY REQUEST DISCHARGE INFORMATION FAXED TO [phone] WHEN AVAILABLE. UPDATED PATIENT AND STAFF ON THIS APPOINTMENT. SPOKE WITH PHYSICAL THERAPIST TAWNY REGARDING PATIENT HAVING A 4WW. SHE STATES SHE WILL DISCUSS THIS WITH HIM, AND HE MOST LIKELY CAN USE IT.
--- NOTE | 2017-12-17 14:00 | NUR ---
PT IS SITTING CHAIR. PAIN IS STILL A 5/10. PT IS PASSING MASS AMOUNTS OF GAS AND IS DOING THE SAME WITH PURPING. WILL CONTINUE TO MONITOR. URINE OUTPUT NEEDS TO BE INCREASED.
--- NOTE | 2017-12-17 14:36 | NUR ---
pt has no urinated in almost 6 hours pt was assisted to the bathroom where he was able to void urine but no BM just gas. pt is now resting in bed with call light in reach.
--- NOTE | 2017-12-17 16:00 | NUR ---
PAIN IS BETTER SINCE EARLY THIS AFTERNOON. PT ALSO WALED WITH PT. RIGHT HIP DRESSING IS D/I. EDEMA IS MINIMAL. PEDIS PULSES ARE +2 ON RIGHT FOOT. PT OVERALL IS DOING BETTER AT THIS TIME. NO NEW CONCERNS NOTED.
--- NOTE | 2017-12-17 17:43 | NUR ---
AT START OF SHIFT PAIN CONTROL WAS AN ISSUE. SINCE EARLY AFTERNOON PAIN IS WELL CONTROLLED WITH PRN PAIN MEDS AVAILABLE. URINE OUTPUT IS ADEQUATE ALL IN ALL. ALL LOBES ARE CLEAR, DRESSING ON RIGHT HIP IS D/I. NO EDEMA NOTED IN LOWER RIGHT LEG, PEDIS PULSE IS +2. JANINE HOSE IS ON, SCD'S ARE ON, KRYO IS ON. NO NEW CONCERN FOR THIS PT AT THIS TIME.
--- NOTE | 2017-12-17 18:37 | NUR ---
PT WAS NOT ABLE TO VOID FROM [phone]. MD GOEL IS AWARE. AN EARLIER BLADDER SCAN SHOWED ABOUT 180ML. MD GOEL IS AWARE. WILL CONTINUE TO MONITOR.
--- NOTE | 2017-12-17 19:20 | NUR ---
PATIENT REPORT GIVEN FROM CHRISTINA ADAMS. PATIENT CURRENTLY RESTING QUIETLY EYES CLOSED, RESPIRATIONS EVEN AND REGULAR. WILL RETURN TO PERFORM PM ASSESSMENT. CALL LIGHT IN REACH.
--- NOTE | 2017-12-17 20:15 | NUR ---
UP TO BRP WITH ONE ASSIST AND FWW, HAD SOME DIFFICULTY TRANSFERRING FROM THE BED TO STANDING POSITION, HELPFUL. VOIDED, BACK TO BED. TOLERATED FAIR
--- NOTE | 2017-12-17 20:32 | NUR ---
PATIENT PM MEDS GIVEN. 1 NORCO PO GIVEN FOR 710 RT HIP PAIN WITH MOVEMENT. PATIENT SITTING IN BEED WATCHING TV. CALL LIGHT IN REACH AND WATER FILLED. PATIENT HAS NO OTHER NEEDS AT THIS TIME AND CALL LIGHT IS IN REACH.
--- NOTE | 2017-12-17 21:59 | NUR ---
VITALS AND I&OS DONE AND CHARTED. HELPED PT BACK TO BED FROM THE BATHROOM. HE HAD URINATED ON THE BATHROOM FLOOR. I CLEANED IT UP WITH THE RED WIPES. GOT HIM FRESH DRY SOCKS. BEDSIDE TABLE AND CALL LIGHT WITHIN REACH. PT NEEDS NOTHING ELSE AT THIS TIME.
--- NOTE | 2017-12-18 00:27 | NUR ---
PATIENT HAS BEEN MEDICATED FOR PAIN. WEDGE IN PLACE BETWEEN LE AND BILAT SCD'S ON. PATIENT'S LIGHTS DIMMED AND HE WOULD LIKE TO GET SOME SLEEP. CURRENT PULLED. PATIENT'S CALL LIGHT IS IN REACH.
--- NOTE | 2017-12-18 01:34 | NUR ---
PATIENT RESTING QUIETLY, EYES CLOSED, RESPIRATIONS EVEN AND REGULAR, PATIENT'S CALL LIGHT IS WITHIN REACH.
--- NOTE | 2017-12-18 03:11 | NUR ---
PATIENT CONTINUES TO REST QUIETLY, EYES CLOSED, RESPIRATIONS EVEN AND REGULAR, CALL LIGHT IS WITHIN REACH.
--- NOTE | 2017-12-18 05:42 | NUR ---
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
--- NOTE | 2017-12-18 06:01 | NUR ---
VITALS DONE AND CHARTED. BEDSIDE TABLE AND CALL LIGHT WITHIN REACH. PT NEEDS NOTHING ELSE AT THIS TIME.
--- NOTE | 2017-12-18 07:15 | NUR ---
RECIEVED BEDSIDE REPORT FROM CHRISTINA DURANT. PT HAS PERSONAL SUPPLIES AND CALL LIGHT IN REACH.
--- NOTE | 2017-12-18 07:32 | NUR ---
DR. ACEVEDO ON FLOOR. GAVE VERBAL ORDER TO CHANGE DRESSING TO RIGHT HIP.
--- NOTE | 2017-12-18 08:29 | NUR ---
ORDERED PATIENT'S BREAKFAST. PATIENT IS STILL SLEEPING.
--- NOTE | 2017-12-18 08:48 | NUR ---
PT REPORTED 7/10 PAIN TO HIS RIGHT HIP. GAVE NORCO 7.5/325 MG 1 TAB PO PRN. ATE 30% OF ADA BREAKFAST. DENIED NAUSEA. C/O HAVING "LOTS OF GAS", PT BURPING AND PASSING LARGE AMOUNTS OF GAS. NO BM THIS AM THUS FAR. PERSONAL SUPPLIES AND CALL LIGHT IN REACH. PT HAS SCDS, JANNIE HOSE TO RIGHT RIGHT LEG, HEEL PROTECTORS, ABDUCTION FOAM CUSHION IN PLACE. REPLACED DRESSING TO RIGHT HIP, NEW MEPILEX AND OPSITE PLACED. SMALL AMOUNT OF DRY BLOODY DRAINAGE PRESENT TO INCISION SITE. IGOR INTACT, INCISION SITE WELL APPROXIMATED.
--- NOTE | 2017-12-18 10:52 | NUR ---
PT AMBULATED IN HALLS WITH PAOLA, PHYSICAL THERAPIST. AMBULATED WITH FWW, TOLERATED WELL.
--- NOTE | 2017-12-18 14:59 | NUR ---
PT HAS REFUSED MULTIPLE ATTEMPTS BY WARP CHANGER TO GET UP TO THE TOILET. AT RN REQUEST, PT DID GET UP WITH DIFFICULTY AND PAIN. RN EDUCATED PT ON IMPORTANCE OF GETTING UP AND WALKING, CHANGING POSITON, AND IMPORTANCE OF SKIN CARE. PT STATED THAT "NEXT TIME HE LAYS DOWN, HE IS PUTTING A PILLOW UNDER MY ASS". RN EDUCATED PT ON IMPORTANCE OF NOT PUTTING A PILLOW UNDER HIM. PT HAD LARGE AMOUNT OF CLEAR MUCUS PER RECTUM. NO FECAL MATTER NOTED IN MUCUS. PT DID VOID FOR 550ML. PT AGREED TO WORK [facility].
--- NOTE | 2017-12-18 15:23 | NUR ---
WHILE GETTING PATIENT'S SHOWER READY HE SAID HE HAD TO GO TO THE RESTROOM. WHILE IN THE RESTROOM I CHANGED THE SHEETS ON HIS BED. NOW HE IS WORKING WITH PHYSICAL THERAPY WHEN SHE IS DONE I WILL GIVE HIM A SHOWER.
--- NOTE | 2017-12-18 16:43 | NUR ---
PT DISAGREEABLE THIS SHIFT, UNWILLING TO GET UP WITHOUT REPEATED REQUESTS. WORKED WITH PHYSICAL THERAPY X2. PT HOLDS URINE LONGER THAN 4HRS, BUT VOIDS LARGE AMOUNTS. CHRISTINA BARRERA DISCUSSED WITH DR ACEVEDO. BM CONSISTS OF CLEAR, MUCUS, LITTLE TO NO FECAL MATTER NOTED. PT IS PASSING FLATUS AND BELCHING OFTEN. PAIN CONTROLLED WITH PRN MEDS. PT DID GET IN SHOWER THIS SHIFT.
--- NOTE | 2017-12-18 17:00 | NUR ---
PATIENT TOOK A SHOWER I WASHED HIS HAIR AND HIS BACK AND HIS LEGS AND FEET AND HE DID THE REST.
--- NOTE | 2017-12-18 17:02 | NUR ---
PT'S GRANDSON CALLED FOR UPDATE. RN GAVE UPDATE ON CARE. GRANDSON STATED THAT FOR OVER A YEAR, PT HAS BEEN ON THE COUCH EXCEPT WHEN HE ABSOULUTLY HAD TO LEAVE THE TRAILER. HIS GRANDSON IS CONCERNED ABOUT ABOUT PT'S ABLITY TO CARE FOR SELF AT HOME. PT'S GRANDSON ASKED ABOUT REHAB, RN EXPLAINED SWING BED PROGRAM. GRANDSON HAS QUESTIONS FOR DISCHARGE PLANNING. PAIN CONTROLED WITH SCHEDULED TYLENOL AND PRN OXYCODONE. PRN OXYCODONE GIVEN TO REDUCE DAILY ACETAMENIPHEN INTAKE. PT UP TO SHOWER AFTER MULTIPLE ATTEMPTS. PT HOLDS URINE FOR EXTENDED PERIODS, BUT VOIDS SIGNIFICANT AMOUNTS WHEN HE DOES VOID. BM IS CLEAR MUCUS, BUT TOWARD END OF SHIFT DID TURN BROWNISH AND CONTAIN FECAL MATTER. PT ATTEMPTED TO PLACE PILLOW UNDER HIPS. RN DID NOT ALLOW PILLOW UNDER HIPS AND EXPLAINED RATIONAL. PT STATED THAT HE UNDERSTOOD. RN ENCOURAGED TURNING AND POSITIONAL CHANGES FREQUENTLY TO AVOID SORENESS. ALSO ENCOURAGED PT TO GET UP IN CHAIR.
--- NOTE | 2017-12-18 19:43 | NUR ---
RECIEVED REPORT FROM CHRISTINA GREEN. PATIENT RESTING QUIETLT IN HIS BED WATCHING TV AT THIS TIME. PATIENT HAS NO COMPLINTS OF PAIN AT THIS TIME AND APPEARS COMFORTABLE. CALL LIGHT IS WITHIN REACH.
--- NOTE | 2017-12-18 21:47 | NUR ---
PATIENT WAS UP AND AMBULATED TO THE BATHROOM AND VOIDED IN THE TOILET. PATIENT BACK IN BED AND SCD'S AND LEG WEDGE IN PLACE. PATIENT MEDICATED FOR 6/10 RT HIP PAIN. PATIENT'S PM MEDS HAVE BEEN GIVEN AND CRYO CUFF ICE FULL. BEDSIDE WATER AND ICE FULL. LIGHTS TURNED DOWN FOR PATIENT TO SLEEP. CALL LIGHT IS IN REACH.
--- NOTE | 2017-12-18 22:49 | NUR ---
PATIENT RESTING QUIETLY, EYES CLOSED, RESPIRATIONS REGULAR AND EVEN, CALL LIGHT IN REACH.
--- NOTE | 2017-12-19 00:15 | NUR ---
PATIENT RESTING QUIETLY, REPIRATIONS EVEN AND REGULAR, CALL LIGHT IN REACH.
--- NOTE | 2017-12-19 02:00 | NUR ---
PATIENT BACK IN BED AFTER AMBULATING TO THE BATHROOM TO URINATE AND THEN BACK TO BED USING FWW AND 1PSBA. PATIENT VOIDED 600MLS, BUT ALSO HAD A LARGE INCONTENENT AMOUNT OF CLEAR WATERY RECTAL MUCUS. PATIENT IS PASSING A LOT OF GAS AND IS BELCHING A LOT. PATIENT MEDICATED WITH 1 NORCO FOR 12/29 RT HIP PAIN AFTER RETURNING TO BED. PATIENT HAS JANNIE HOSE ON RT LEG, SCD'S BILAT, HEAL PROTECTORS BILAT, AND ORTHO WEDGE BETWEEN HIS LEGS. NEW [place] PLACED ON BED AND NEW ATTENDS IN PLACE. CRYO MACHINE WAS FILLED WITH NEW ICE AND PATIENT'S ICE WATER WAS REFILLED. PATIENT TRYING TO GO BACK TO SLEEP. CALL LIGHT IN REACH.
--- NOTE | 2017-12-19 05:07 | NUR ---
PATIENT CONTINUES TO REST QUIETLY, EYES CLOSED, RESPIRATIONS EVEN AND REGULAR. CALL LIGHT IN REACH.
--- NOTE | 2017-12-19 07:25 | NUR ---
REPORT GIVEN TO CHRISTINA CAZARES. PATIENT DID NOT DRINK MUCH WATER HE NORMALLY DOES AND WHEN HE WOKE UP THIS MORNING HE WAS NOT HUNGRY WHEN HE WOKE UP THIS AM WHICH IS ALSO NOT HIS NORM. PATIENT'S BELLY LOOKS DESTENDED AND HIS BOWEL TONES ARE LESS ACTIVE THAN THEY WERE AT THE BEGINNING OF THE SHIFT. PATIENT HAS BEEN HAVING LARGE AMOUNTS OF CLEAR LIQUID RECTAL MUCUS WHEN HE PASSES GAS, AND HE HAS BEEN HAVING A LOT OF FLATULENCE. PATIENT IS ALSO BELCHING A LOT. PATIENT DID NOT VOID THIS MORNING WHICH IS ALSO A CHANGE IN THE LAST 3 DAYS. PATIENT TRIED TO USE THE URINAL, THEN AMBULATED TO THE BATHROOM AND STILL COULD NOT URINATE. BLADDER SCAN WAS DONE X3 AND WITH RESULTS 193MLS,191MLS, AND 193MLS AGAIN. PATIENT HAS SLEPT PRETTY WELL THROUGH THE NIGHT, MEDICATED X3 FOR PAIN WHICH WAS EFFECTIVE EACH TIME. SAGE TAKING OVER CARE FOR PATIENT AT THIS TIME.
--- NOTE | 2017-12-19 07:28 | NUR ---
REPORT RECEIVED FROM CARLEEN VASQUEZ. ALL QUESTIONS ANSWERED. WHITE BOARD UPDATED. PATIENT AWAKE LYING IN BED. CONCERNS ABOUT DISTENDED ABDOMEN. POOR APPETITE THIS MORNING WHICH IS A CHANGE IN PATIENT STATUS. LOW UO D/T POOR ORAL INTAKE OF FLUIDS. PATIENT HAS BEEN HAVING LARGE BMs OF CLEAR MUCOUS-LIKE CONSISTENCY (INCONTINENT). WILL PASS ON TO HOSPITALIST IN CHARGE REPORT THIS MORNING.
--- NOTE | 2017-12-19 08:53 | NUR ---
ACTIVE BOWEL TONES, MODERATE ABDOMINAL DISTENTION, PATIENT UNCOMFORTABLE D/T DISTENTION IN ABDOMEN. FREQUENT BELCHING. CLEAR LUNGS. REGULAR HEART RATE/RHYTHM. APPETITE POOR D/T ABD DISTENTION.
--- NOTE | 2017-12-19 09:38 | NUR ---
NORCO GIVEN TO PATIENT TO PREMEDICATE BEFORE GETTING UP TO RECLINER. CRYOCUFF REPLACED ON HIP. NS INFUSING @75 (NEW ORDER FROM DR ACEVEDO). PLAN TO HAVE ABD CT THIS MORNING.
--- NOTE | 2017-12-19 10:13 | NUR ---
PT OFF FLOOR TO ABD CT SCAN. LINENS CHANGED AND ROOM TIDIED BY THIS RN. RECLINER SET UP TO RECEIVE PATIENT WHEN BACK TO ROOM.
--- NOTE | 2017-12-19 10:29 | NUR ---
PT BACK ON FLOOR NOW. UP IN RECLINER. PHYSICAL THERAPIST WORKING WITH PATIENT NOW. 10MG OXYCODONE GIVEN FOR PAIN IN RIGHT HIP.
--- NOTE | 2017-12-19 11:44 | NUR ---
PT UP IN RECLINER. FSBS 156. 1 UNIT INSULIN ADMINISTERED IN RLQ. EATING LUNCH NOW. WILL TRADE CHAIR OUT FOR YELLOW CHAIR THAT IS TALLER WHEN PATIENT UP.
--- NOTE | 2017-12-19 12:16 | NUR ---
SCANS SHOW SIGNS CONSISTENT WITH ILEUS. HOSPITALIST AND DR ACEVEDO NOTIFIED AND AWARE. NO CHANGES TO ORDERS.
--- NOTE | 2017-12-19 12:56 | NUR ---
PT UP TO BATHROOM. EXCHANGED RECLINERS. PULL CORD IN REACH FOR PATIENT TO CALL WHEN FINISHED IN BATHROOM. ATTENDS REMOVED. NO MUCOUS BM NOTED IN ATTENDS.
--- NOTE | 2017-12-19 13:17 | NUR ---
PT UP IN YELLOW RECLINER NOW. TALKING WITH FAMILY ON THE PHONE. TYLENOL GIVEN PER SCHEDULE.
--- NOTE | 2017-12-19 13:57 | NUR ---
PT COMPLAINED THAT THE RECLINER WAS UNCOMFORTABLE. TRANSFERRED PATIENT TO BED. ALL RAILS UP. CALL LIGHT IN REACH. CRYOCUFF AND SCDs ON.
--- NOTE | 2017-12-19 15:48 | NUR ---
patient resting comfortably in bed watching television. abdomen feeling "better". right hip "sore".
--- NOTE | 2017-12-19 18:18 | NUR ---
PATIENT WORKED WITH PHYSICAL THERAPY THIS MORNING. TOLERATED MODERATELY WELL. NORCO/OXYCODONE PRN FOR PAIN. AVOID OXYCODONE D/T ILEUS FOUND ON ABD XRAY. FULL LIQUID DIET. NS @ 75. 1PA FWW. AMBULATED AGAIN THIS EVENING. NEW IV PLACED IN RFA. BROWN DIARRHEA BM TODAY. "CAMEL BLADDER" HOLDS URINE FOR LONG PERIODS. DRESSING ON RIGHT HIP C/D/I.
--- NOTE | 2017-12-19 18:51 | NUR ---
UP TO BATHROOM 1PA FWW. PATIENT HAVING LOTS OF FLATULENCE. INCONTINENT BOWEL. ATTENDS CHANGED. BROWN LIQUID STOOL. PATIENT ON COMMODE NOW. CALL LIGHT IN REACH.
--- NOTE | 2017-12-19 19:08 | NUR ---
PT IS AWAKE IN BED, HE WAS JUST UP TO THE RESTROOM. HE DENIES NEEDS AT THIS TIME. CALL LIGHT IS WITHIN REACH.
--- NOTE | 2017-12-19 21:02 | NUR ---
VITALS AND I&OS DONE AND CHARTED. FRESH ICE WATER GIVEN. BEDSIDE TABLE AND CALL LIGHT WITHIN REACH.
--- NOTE | 2017-12-19 21:41 | NUR ---
ADMINISTERED EVENING MEDICATIONS AND ASSESSED PT. RT HIP DRESSING IS CDI WITH SOME BRUSING NOTED. HE IS IN BED AND DENIES ANY PAIN AT THIS TIME WHILE STILL. ABD PILLOW AND HEEL PROTECTORS IN PLACE ALONG WITH SCDS. PT REPORTS BASELINE NUMBNESS IN BOTH FEET. PT HAD A BROWN BM AT THE START OF THE SHIFT AND REPORTS HE CONTINUES TO PASS GAS AND BOWEL TONES ARE ACTIVE. HE DENIES FURTHER NEEDS AT THIS TIME. CALL LIGHT IS WITHIN REACH.
--- NOTE | 2017-12-19 22:13 | NUR ---
PT IS RESTING WITH EYES CLOSED, RESPIRATIONS ARE EVEN AND NONLABORED. CALL LIGHT IS WITHIN REACH.
--- NOTE | 2017-12-19 23:07 | NUR ---
PT IS RESTING WITH EYES CLOSED, RESPIRATIONS ARE EVEN AND NONLABORED. CALL LIGHT IS WITHIN REACH.
--- NOTE | 2017-12-20 00:57 | NUR ---
PT IS RESTING WITH EYES CLOSED, RESPIRATIONS ARE EVEN AND NONLABORED. CALL LIGHT IS WITHIN REACH.
--- NOTE | 2017-12-20 01:45 | NUR ---
ENTERED PT'S ROOM WITH NEW IV BAG AND PT HAD INCONTINENT STOOL IN BED. CHANGED BEDDING AND ADMINISTERED OXYCODONE. FRESH ICEWATER AT BEDSIDE AND NEW ICE IN CRYOCUFF. PT DENIES FURTHER NEEDS AT THIS TIME.
--- NOTE | 2017-12-20 03:19 | NUR ---
PT IS RESTING WITH EYES CLOSED, RESPIRATIONS ARE EVEN AND NONLABORED. CALL LIGHT IS WITHIN REACH.
--- NOTE | 2017-12-20 03:55 | NUR ---
HELPED PT USE URINAL. RT HIP DRESSING REMAINS CDI. PT DENIES FURTHER NEEDS AT THIS TIME. CALL LIGHT IS WITHIN REACH.
--- NOTE | 2017-12-20 04:34 | NUR ---
PT IS RESTING WITH EYES CLOSED, RESPIRATIONS ARE EVEN AND NONLABORED. CALL LIGHT IS WITHIN REACH.
--- NOTE | 2017-12-20 05:35 | NUR ---
PT IS RESTING WITH EYES CLOSED RESPIRATIONS ARE EVEN AND NONLABORED. CALL LIGHT IS WITHIN REACH.
--- NOTE | 2017-12-20 06:07 | NUR ---
PT AMBULATES 1PA WITH FWW AND HAS NS INFUSING AT 75MLS/HR. HE HAD A LARGE BROWN RUNNY BOWEL MOVEMENT LAST NIGHT AND BOWEL TONES ARE ACTIVE. HE IS ALSO PASSING GAS AND BELCHING. HE WAS GIVEN 10MG OF OXYCODONE AT 0131 BECAUSE NOTES UNDER THE NORCO IN [place] STATES NOT TO EXCEED 3000MG OF TYLENOL AND PT HAS THAT AMOUNT OF TYLENOL SCHEDULED DAILY. DRESSING ON RT HIP REMAINED CDI THROUGH THE NIGHT. PT IS VOIDING QS. PT MAY BECOME SWING BED ON THURSDAY.
--- NOTE | 2017-12-20 06:28 | NUR ---
WOKE PT TO DO VS AND I&O'S AND TO ADMINISTER TYLENOL. HE DENIES NEEDS AT THIS TIME. CALL LIGHT IS WITHIN REACH.
--- NOTE | 2017-12-20 07:28 | NUR ---
PATIENT SITTING UP IN BED. PATIENT REFUSED TO WASH HANDS AND FACE WITH WARM WASH CLOTH. PATIENT CALL LIGHT IN REACH. FRESH ICE WATER AT BEDSIDE TABLE. NO OTHER NEEDS AT THIS TIME.
--- NOTE | 2017-12-20 07:40 | NUR ---
PATIENT AWAKE AT BEDSIDE REPORT FROM MARY VASQUEZ. WHITE BOARD UPDATED. FSBS 128. NO HUMALOG INSULIN COVERAGE NEEDED. NS INFUSING AT 75. CREATININE IMPROVED FROM 1.32 TO 1.28. TOLERATING FULL LIQUID DIET. MULTIPLE INCONINTENT BMs OVERNIGHT.
--- NOTE | 2017-12-20 08:30 | NUR ---
PATIENT IN BED. CRYOCUFF ICE REPLACED/CHANGED. PATIENT WATCHING TELEVISION. OXYCODONE GIVEN FOR 01/29 RIGHT HIP PAIN. BELCHING FREQUENTLY. PASSING SOME GAS. DRESSING RIGHT HIP C/D/I. NS INFUSING AT 75 INTO RFA IV. ABDOMEN MORE DISTENDED THAN YESTERDAY. TAUT. ACTIVE BOWEL TONES.
--- NOTE | 2017-12-20 08:49 | NUR ---
PATIENT STATES HE WOULD NOT LIKE A SHOWER TODAY, HE IS "NOT FEELING UP TO IT WITH THIS STOMACH ISSUE". RN NOTIFIED. NO OTHER NEEDS AT THIS TIME.
--- NOTE | 2017-12-20 10:24 | NUR ---
PT UP TO BATHROOM WITH JEMIMA VASQUEZ. URINATED LARGE AMOUNT AND LARGE LOOSE BROWN BM. NEW ATTENDS ON. AMBULATED TO END OF VAUGHN AND BACK TO ROOM. UP IN RECLINER NOW. GUM PROVIDED FOR ILEUS RESOLUTION. CALL LIGHT WITHIN REACH. LUNCH ORDERED.
--- NOTE | 2017-12-20 10:47 | NUR ---
PATIENT STATES HE IS IN PAIN. PATIENT STATES HIS PAIN WHEN LAYING IN BED IS SIGNIFICANTLY LESS THAN WHEN HE IS LAYING IN THE BEDSIDE RECLINER. RN NOTIFIED. DOCTOR IN ROOM. NO OTHER NEEDS AT THIS TIME.
--- NOTE | 2017-12-20 11:05 | NUR ---
PT UP TO BATHROOM. ATTENDS CHANGED. BACK TO BED NOW. CRYOCUFF IN PLACE.
--- NOTE | 2017-12-20 14:02 | NUR ---
PATIENT RESTING IN BED, CALL LIGHT IN REACH. FRESH ICE WATER AT BEDSIDE TABLE. NO OTHER NEEDS AT THIS TIME.
--- NOTE | 2017-12-20 14:37 | NUR ---
PT RESTING COMFORTABLY IN BED. AWAKENED TO VOICE. TYLENOL AND NABICARB GIVEN.
--- NOTE | 2017-12-20 17:45 | NUR ---
PATIENT HAVING BROWN LIQUID STOOL INCONTINENT. LOTS OF FLATUS AND BELCHING. GUM PROVIDED FOR PATIENT TO ASSIST WITH RESOLUTION OF ILEUS. HOLDS URINE FOR LONG PERIODS. MEPILEX AND OPSITE ON RIGHT HIP C/D/I. OXYCODONE X2 AND NORCO X1. NS @ 75 INFUSING INTO RFA. ACCU CHECKS WITH MEALS. FULL LIQUID DIET. LIKELY WILL SWING BED TOMORROW. 1PA FWW.
--- NOTE | 2017-12-20 19:15 | NUR ---
IN ROOM FOR REPORT, PT IS AWAKE IN BED. HE REQUESTED FRESH WATER. HE DENIES FURTHER NEEDS AT THIS TIME. CALL LIGHT IS WITHIN REACH.
--- NOTE | 2017-12-20 21:20 | NUR ---
VITALS AND I&OS DONE AND CHARTED. BLOOD SUGAR DONE WELL AND CHARTED. BEDSIDE TABLE AND CALL LIGHT WITHIN REACH. PT NEEDS NOTHING ELSE AT THIS TIME.
--- NOTE | 2017-12-20 22:01 | NUR ---
ADMINISTERED EVENING MEDICATIONS AND ASSESSED PT. RT HIP DRESSING HAS SOME LIGHT SHADOWING NOTED. ABD DEVICE, SCDS, AES, HEEL PROTECTORS AND CRYO CUFF ARE IN PLACE. PT WAS ADMINISTERED OXYCODONE FOR 8/10 PAIN. HIS ABDOMEN REMAINS FIRM AND HE CONTINUES TO BELCH AND PASS GAS. HE HAD 3 BROWN BM'S TODAY. HE IS READY FOR BED AND HAS FRESH ICEWATER AT BEDSIDE. CALL LIGHT IS WITHIN REACH.
--- NOTE | 2017-12-20 22:56 | NUR ---
PT IS RESTING WITH EYES CLOSED, RESPIRATIONS ARE EVEN AND NONLABORED. CALL LIGHT IS WITHIN REACH.
--- NOTE | 2017-12-21 00:52 | NUR ---
PT IS RESTING WITH EYES CLOSED, RESPIRATIONS ARE EVEN AND NONLABORED. CALL LIGHT IS WITHIN REACH.
--- NOTE | 2017-12-21 02:28 | NUR ---
PT IS RESTING WITH EYES CLOSED, RESPIRATIONS ARE EVEN AND NONLABORED. CALL LIGHT IS WITHIN REACH.
--- NOTE | 2017-12-21 04:03 | NUR ---
HELPED PT WITH HIS URINAL IN BED. CHANGED GOWN DUE TO URINE SPILLING ON IT. HELPED HIM REPOSITION IN BED. BEDSIDE TABLE AND CALL LIGHT WITHIN REACH. PT NEEDS NOTHING ELSE AT THIS TIME.
--- NOTE | 2017-12-21 04:15 | NUR ---
PT WOKE TO USE URINAL. HE STATES PAIN IS 8/10, ADMINISTERED NORCO. DRESSING IS DRY WITH SLIGHT SHADOWING. FRESH ICE IS IN CRYO AND FRESH ICEWATER AT BEDSIDE. PT DENIES FURTHER NEEDS AT THIS TIME.
--- NOTE | 2017-12-21 04:22 | NUR ---
VITALS AND I&OS DONE AND CHARTED. FRESH WATER GIVEN. BEDSIDE TABLE AND CALL LIGHT WITHIN REACH.
--- NOTE | 2017-12-21 05:11 | NUR ---
PT DID NOT HAVE ANY INCONTINENT STOOL LAST NIGHT. HE IS VOIDING QS URINE. ABDOMEN IS STILL FIRM BUT HE CONTINUES TO BELCH AND PASS GAS. HE REQUIRED NORCO ONCE AND OXYCODONE ONCE LAST NIGHT FOR 8/10 PAIN. AMBULATES 1PA WITH FWW. ACCUCHECKS ACHS, BG LAST NIGHT WAS 149 REQUIRING 1 UNIT SS INSULIN. PT IS ON A FULL LIQUID DIET, HE MAY BECOME SWING BED TODAY.
--- NOTE | 2017-12-21 05:52 | NUR ---
PT IS RESTING WITH EYES CLOSED, RESPIRATIONS ARE EVEN AND NONLABORED. CALL LIGHT IS WITHIN REACH.
--- NOTE | 2017-12-21 07:35 | NUR ---
Coop with assessment, in bed, dressing r hip with old shadowing, elana reina, scds, heel protectors and bonifacio gboldter in place, ivf infusing w/o problems, cbg 125, no need for ss insulin coverage, no c/o pain or n/v
--- NOTE | 2017-12-21 09:05 | NUR ---
Pt up in chair for breakfast, ate 100% clear liquid diet. Up to brp wtih one PA and FWW tolerated fair, passed large amount of rectal flatus and had large amount of clear rectal mucus, lotion to vidhi area. Back to chair, legs elevated. cryo cuff in place to R Hip. ivf infusing w/o problems. c/o milf behind the r knee pain, was medicated earlier. Denies need for pain med at this time.
--- NOTE | 2017-12-21 11:02 | NUR ---
pt walked with PT, tolerated well, used 1PA and FWW, gait belt, back to bed, cryocuff to r hip, elana hose,scds, abductor pillow and heel protectors in place. ivf infusing w/o problems, no c/o pain at this time
--- NOTE | 2017-12-21 11:08 | NUR ---
PATIENT RESTING IN BED, CALL LIGHT IN REACH. NO OTHER NEEDS AT THIS TIME.
--- NOTE | 2017-12-21 13:32 | NUR ---
PT RESTING IN BED, RESPONDED TO MY VOICE. HE IS ALERT, ORIENTED AND RATHER OPINIONATED ABOUT MOST EVERYTHING. HE COMPLAINED ABOUT HIS LUNCH BEING LATE-IT WAS ON THE SIDE TABLE NEXT TO HIM. HE SAID IT WAS PROBABLY SOUP-WHICH IT WAS. HE SAID HE WON'T EAT CHICKEN SOUP. PT APPARENTLY IS NOT FOND OF DIET HE IS ON, BUT DID GET HIM TO SMILE AND JOKE SOME. HE ALSO EXPRESSED DISPLEASURE WITH THE CHAIR IN HIS RM-TOO HARD. WILL SEE IF ANOTHER MAY WORK, I WILL PASS ON TO STAFF. EXTENDED A BLESSING, WILL FOLLOW NEEDED
--- NOTE | 2017-12-21 16:21 | NUR ---
PATIENT RESTING IN BED, WATCHING TV. SCD'S ON, ABDUCTION PILLOW IN PLACE. CRYO CUFF ON. CALL LIGHT IN REACH. NO OTHER NEEDS AT THIS TIME.
--- NOTE | 2017-12-21 17:00 | NUR ---
pt medicated with Oxycodone 10mg po c.o r hip pain, pt to be moved to room 114 t
--- NOTE | 2017-12-21 18:08 | NUR ---
PT MOVED TO ROOM 114, WALKED FROM ROOM 124 TO ROOM 114 WITH ONE ASSIST, GAIT BELT AND FWW, TOLERATED WELL. EDYENLTKatie IN BED, HAS BEEN UP 2 HOURS EACH MEAL UP IN CHAIR, HAS TOLERATED FAIR, WALKED WITH PT X2, TOLERATED WELL. HAS BEEN MEDICATED WITH OXYCODONE X2 PER R HIP PAIN WITH GOOD PAIN CONTROL, RECEIVED TYLENOL ATC SCHEDULED. BRUISING R ARM FROM PREVIOUS CL HEALING. DRESSING R HIP INTACT, TRACE EDEMA. JANNIE HOSE, HEEL PROTECTOR AND SCDS BILAT IN PLACE, CRYOCUF TO R HIP AREA. LEG ABDUCTOR IN PLACE. PT ON ROOM AIR. CONTINUES TO BE ON CLEAR LIQUID DIET, HAS TOLERATED 100% OF MEALS, NO N/V. PT COOPERATIVE WITH ALL PROCEDURES AND ASSESSMENTS
--- NOTE | 2017-12-21 19:15 | NUR ---
RECEIVED REPORT FROM CHRISTINA PRINCE DAYSSDFT. PT IN BED, WITH CALL LIGHT WITHIN REACH, SCD'S, HEEL PROCTORS IN PLACE, CRYO CUFF RESTING ON RIGHT HIP. PT DENIES NEEDS.
--- NOTE | 2017-12-21 22:52 | NUR ---
V/S AND I/O DONE AND CHARTED.
--- NOTE | 2017-12-21 23:58 | NUR ---
Patient is resting, no complaints.
--- NOTE | 2017-12-22 03:00 | NUR ---
PT COMPLAINED OF PAIN, MED WITH PRN OXYCODONE. ASSISTED PT TO USE THE URINAL HE HASN'T SINCE 2199. UNABLE TO VOID, SAID HE WOULD TRY LATER. PT CONTINUES WITH SCD'S, HEEL PROTECTORS, JANNIE ABBOTT, WEDGE, AND CRYO. VISITED WITH PT ABOUT EXPECTATIONS OF AMBULATION DURING THE DAY.
--- NOTE | 2017-12-22 06:00 | NUR ---
WOKE PT FOR THE SCHEDULED TYLENOL. ASSISTED WITH THE URNIAL, WAS UNABLE TO VOID. WILL HAVE BLADDER SCAN DONE.
--- NOTE | 2017-12-22 07:15 | NUR ---
BLADDER SCAN WITH "879" PER THE AUTOMATIC DEVELOPER. INSTRUCTED AUTOMATIC DEVELOPER TO GET PT UP AND SEE IF HE COULD VOID. AUTOMATIC DEVELOPER REPORTED THAT PT VOIDED 525 AFTER HE WAS GOTTEN UP. LILIAN AWARE OF THIS.
--- NOTE | 2017-12-24 07:27 | DS ---
[facility] [address], [place] [address] Signed ADMISSION DATE: 12/14/2017 DISCHARGE DATE: 12/22/2017 ADMISSION DIAGNOSIS: Degenerative joint disease, right hip. DISCHARGE DIAGNOSES: 1. Degenerative joint disease, right hip. 2. Acute renal failure, postop. 3. Postop ileus. PROCEDURE PERFORMED DURING THIS HOSPITALIZATION: Right total hip arthroplasty. BRIEF HISTORY: Xavier is a 77-year-old gentleman with a severe pain in his hip. He had undergone nonoperative treatment without substantial relief, wished to proceed with the total hip replacement. He was cleared by medicine service and underwent the above-named procedure. He tolerated this well, was taken to the recovery room and subsequently to orthopedic floor. He had excellent pain control with the spinal, however, his blood pressure trended quite low. Ultimately, he was placed in the ICU to support his blood pressure, which was thought to be secondary to the spinal. He did develop some acute renal failure with his creatinine going up to 3. IV fluids and blood pressure support resolved this. He was subsequently taken back to the orthopedic floor, where he was seen by Physical Therapy. He was very slow to mobilize and very reluctant to mobilize due to proceed pain control issues. He was placed on narcotics and no anti-inflammatories. He was continued on the gabapentin. He again was very slow to mobilize, very reluctant and refused to mobilize many times. Subsequently on postoperative day 5, he developed substantial abdominal distention and was passing gas and mucousy stool and was diagnosed with an ileus. He was placed on a clear liquid diet. He is slowly resolving ileus, but continues to be reluctant to move and he has very poor balance and strength. We will discharge him to swing bed status for continued inpatient rehab and will continue watching his ileus as it continues to improve. He will be discharged on his current medications. He will be continued on the Lovenox for DVT prophylaxis as well. This was maintained throughout his hospitalization along with SCDs and TEDs. Ruth Valenzuela MD Electronically Signed By: RUTH VALENZUELA MD 12/24/17 0727 PATIENT NAME: XAVIER FRANCO DISCHARGE SUMMARY DATE OF : 44 REPORT #: [id number] PHYSICIAN: RUTH VALENZUELA MD PCP: RUTH VALENZUELA MD REPORT IS CONFIDENTIAL AND NOT TO BE RELEASED WITHOUT AUTHORIZATION [facility] [address] [facility] [address] [place] [address] Signed /PAULINE /[id number] Copies: ~ Electronically Signed By: RUTH VALENZUELA MD 12/24/17 0727 PATIENT NAME: XAVIER FRANCO DISCHARGE SUMMARY DATE OF : 42 REPORT #: [id number] PHYSICIAN: RUTH VALENZUELA MD PCP: RUTH VALENZUELA MD REPORT IS CONFIDENTIAL AND NOT TO BE RELEASED WITHOUT AUTHORIZATION
== END 2017-12-22 07:55 | disposition swing bed (61) | DRG 469 ==
LOC: MS 06:50 → DS 06:50 → MS 11:20 → DS 11:54 → MS 11:54 → CCU 11:55 → MS 12-15 11:10
PROVIDERS: ADMIT Specialist
PROC: 0SR904Z Replacement of Right Hip Joint with Ceramic on Polyethylene Synthetic Substitute, Open Approach (ICD-10-PCS; principal; 2017-12-14 09:00)
PROC: 02HV33Z Insertion of Infusion Device into Superior Vena Cava, Percutaneous Approach (ICD-10-PCS; 2017-12-15)
DX: M16.11 Unilateral primary osteoarthritis, right hip (principal); G93.41 Metabolic encephalopathy; N17.9 Acute kidney failure, unspecified; K56.7 Ileus, unspecified; N99.0 Postprocedural (acute) (chronic) kidney failure; E11.22 Type 2 diabetes mellitus with diabetic chronic kidney disease; I12.9 Hypertensive chronic kidney disease with stage 1 through stage 4 chronic kidney disease, or unspecified chronic kidney disease; F17.220 Nicotine dependence, chewing tobacco, uncomplicated; N18.3 Chronic kidney disease, stage 3 (moderate); E78.5 Hyperlipidemia, unspecified; E79.0 Hyperuricemia without signs of inflammatory arthritis and tophaceous disease; R25.3 Fasciculation; T40.2X5A Adverse effect of other opioids, initial encounter; Y92.239 Unspecified place in hospital as the place of occurrence of the external cause; Z79.84 Long term (current) use of oral hypoglycemic drugs; Z79.02 Long term (current) use of antithrombotics/antiplatelets; Z79.82 Long term (current) use of aspirin; Z79.899 Other long term (current) drug therapy; Z88.0 Allergy status to penicillin; Z88.8 Allergy status to other drugs, medicaments and biological substances
CPT/HCPCS: 36415; 36569; 51702; 71045; 72170; 74022; 80048; 82570; 83735; 84300; 84540; 85025; 97110; 97116; 97161; 97166; 97530; 97535; C1776; G8978; G8979; J0690; J1100; J1650; J1720; J1815; J1885; J2250; J2274; J2405; J2704; J2765; J3010; J3475; J7030; J7040; J7120

== ENCOUNTER 2017-12-22 07:55 | Inpatient (IN) | payer MEDICARE ==
[~2017-12-22] VITALS: Ht 172.7 cm; Wt 98.9 kg
--- NOTE | 2017-12-22 07:30 | NUR ---
PATIENT IN BED, BS CHECK. SAT PATIENT UP IN BED FOR BREAKFAST. STAFF IN FOR MORNING ROUNDS. CALL LIGHT IN REACH
[~2017-12-22 07:55] MED LIST changes: +OXYBUTYNIN CHLOR5 MG PO; +SODIUM BICARBO650 MG PO; +TAMSULOSIN HCL0.4 MG PO
--- NOTE | 2017-12-22 08:31 | NUR ---
MED REC COMPLETE
--- NOTE | 2017-12-22 09:18 | NUR ---
PROVIDED PATIENT WITH MORNING MEDICATIONS. NEWLY TRANSITIONED TO SWING BED, DELAY IN MEDS BEING ADMINISTERED SECONDARY TO VERIFY PROCESS. PATIENT APPEARS AGITATED, AND RESTLESS IN BED, MUTTERING. PROVIDED PATIENT WITH EXPLANATION OF SWING BED ADMISSION PROCESS. PATIENT STATED " I DON'T CARE, I JUST WANT MY MEDICATIONS". PHONE CALL TO PHARMACY, MEDICATIONS VERIFIED. PHYSICAL THERAPY IN ROOM, PATIENT STATES " I CAN'T DO THERAPY BECAUSE OF HOW LATE MY MEDS WERE ADMINISTERED." REASSURED PATIENT THAT WOULD WAIT FOR PAIN MEDICAITON TO TAKE EFFECT BEFORE PHYSICAL THERAPY AND MADE POC FOR 0930 ALLOWING 30 MINUTES. PATIENT VERBALIZED UNDERSTANDING AND AGREED TO POC.
--- NOTE | 2017-12-22 09:41 | NUR ---
PATIENT UP WITH PHYSICAL THERAPY, APPEARS TO BE PARTICIPATING. PAIN WELL CONTROLLED, RATES PAIN 4/10 ON PAIN SCALE. ATE 100% OF LUNCH.
--- NOTE | 2017-12-22 09:45 | NUR ---
PATIENT UP IN BR WITH PT. I/OS CHARTED. DRAWSHEET CHANGED. CRYO FILLED, ROOM TIDIED. PATIENT AMBULATING HALLS WITH PT.
--- NOTE | 2017-12-22 10:30 | NUR ---
SPOKE WITH PATIENT IN ROOM. DISCUSSED TRANSITIONAL CARE PROGRAM. PATIENT HAS BROCHURE AT BEDSIDE. DISCUSSED HIS PARTICIPATION AND PROGRESSION NEEDS TO QUALIFY HE GOES. PATIENT STATES "YA, I'LL TRY WHEN I FEEL UP TO IT". AGAIN DISCUSSED HE NEEDS TO PARTICIPATE DAILY. DISCUSSED TO STAY UP ON PAIN CONTROL AND TO BE SURE TO DISCUSS SYMPTOMS IF HE ISN'T FEELING WELL. PATIENT GRUMPY WITH STAFF WHO CAME INTO ROOM TO SEE HIM.
--- NOTE | 2017-12-22 10:33 | NUR ---
MORNING ASSESSMENT AND TRASFER TO SWING BED DUE. THIS RN TO BEDSIDE. PT RETURNS FROM WORKING WITH PHYSICAL THERAPY. PT REPORTS ONGOING PAIN THAT IS 8/10, PT STATES PAIN IS TOLERABLE. PT USING THE WORD "SHIT" FREQUENTLY WITH CONVERSATION. PT STATES "YOU PEOPLE ARE ALL A PAIN IN THE ASS." PT REPORTS HE "HATES" BEING UP IN THE CHAIR AND THAT HE HAD TO STAY IN IT YESTERDAY FOR 2 HOURS AND HE IS "NOT HAPPY ABOUT IT AND NOT DOING THAT AGAIN TODAY." PT ENCOAURGED TO GET UP OFTEN POSSIBLE AND REMINDED TO WALK 4 TIMES TODAY. ASSESSMENT DONE. OCCUPATIONAL THERAPY TO BEDSIDE. PT WORKING WITH OT.
--- NOTE | 2017-12-22 10:58 | NUR ---
PHARMACY CALLED REGARDING POSSIBILITY OF GIVING PT NORCO WITH SCHEDULED TYLENOL. PHARMACIST STATES THIS WOULD NOT BE SAFE FOR PT. CALLED AND UPDATED ON PTS CONTINUED PAIN (NOW 03/01). MD STATES TO CANCEL SCHEDULED TYLENOL AND GIVEN NORCO INSTEAD. PHARMCY CALLED. ORDERS CHANGED. THIS RN TO PT ROOM. NORCO GIVEN ORDERED. PT STATES "I'M SICK OF BEING UP IN THIS CHAIR." PT ENCOURAGED TO STAY UP AND MOVE AROUND MUCH HE CAN TOLERATE. PT REFUSES TO REMAIN UP IN CHAIR. PT TRANSFERED BACK TO BED. CRYO CUFF, ABDUCTOR PILLOW, SCDS, BACK IN PLACE. BED RAILSUP. WATER REFILLED, PERSONAL BELONGINGS WITHIN REACH. CALL LIGHT WITHIN REACH.
--- NOTE | 2017-12-22 11:29 | NUR ---
THIS RN TO ROOM TO CHECK ON PT. PT UPDATED REGARDING DIET. PT CONTINUES ON FULL LIQUID DIET. PT FRUSTRATED THAT HE CAN'T HAVE "REALLY FOOD AND JUST THIS DOG FOOD INSTEAD." PT EDUCATION DONE REGARDING DIET ORDER AT THIS TIME. PT TALKING ON THE PHONE AND REQUESTS HIS FAMILY/FRIENDS BRING IN PIZZA FOR HIM. PT ADVISED THAT HE CANNOT EAT PIZZA AT THIS TIME BUT THAT THEY COULD BRING HIM A MILK SHAKE, GUM, OR HARD CANDIES. PT VERBALIZES UNDERSTANDING. BED RAILS UP. CALL LIGHT WITHIN REACH.
--- NOTE | 2017-12-22 11:29 | NUR ---
CONNECTED WITH PT HE WAS WALKING WITH P.T. PT WAS IN SOME PAIN, HE SAID HE IS REALLY TIRED OF IT. STAFF ALL WORKED TO ENCOURAGE PT. I WILL FOLLOW UP WITH PT AGAIN.
--- NOTE | 2017-12-22 12:36 | NUR ---
MEDICATION DUE. THIS RN TO BEDSIDE. PT CONTINUES TO REPORT 8/10 PAIN. SEE MAR FOR MEDICATION GIVEN. PT WATCHING TV. NO ADDIITONAL REQUESTS OR COMPLAINTS AT THIS TIME.
--- NOTE | 2017-12-22 13:39 | NUR ---
PATIENT SITTING UP IN BED, I/OS CHARTED. CHRISTINA HUERTA IN ROOM FOR VAUGHN AMBULATION. ENCOURAGING PATIENT TO USE URIANAL BERFOREHAND.
--- NOTE | 2017-12-22 13:40 | NUR ---
THIS RN TO BEDSIDE. PT ENCOUARGED TO GET UP AND WALK. PT AGREEABLE TO THIS PLAN. PT ASSISTED UP OUT OF BED. ENCOUARGED TO VOID BUT UNABLE TO URINATE AT THIS TIME. PT STATES "I JUST DON'T FEEL LIKE I NEED TO GO." PT AMBULATING AROUND UNIT WITH ASSISTANCE FROM TRAIN CREW MEMBER.
--- NOTE | 2017-12-22 14:54 | NUR ---
PT REPORTING 7/10 PAIN. PAIN MEDICATION GIVEN. RIGHT KNEE INCREASE IN SWELLING NOTED. KNEE MEASURES 51 CM OVER PATELLAR AREA, LEFT KNEE MEASURING AT 45.5 CM. MD NOTIFIED. PHYSICAL THERAPY AT BEDSIDE. PT REQUESTS 10 MORE MINUTES TO REST. BED RAILS UP. CALL LIGHT WITHIN REACH.
--- NOTE | 2017-12-22 15:00 | NUR ---
MD CALLED REGARDING RIGHT KNEE SWELLING. MD STATES NO ORDERS AT THIS TIME. PT HAS BASELINE ARTHRITIS AND NO ADDITIONAL NOTIFCATION TO MD IS NEEDED. PT UPDATED. STATESHIS QUESTIONS HAVE BEEN ANSWERED.
--- NOTE | 2017-12-22 17:35 | NUR ---
PATIENT UP IN BED EATING DINNER, THIS STRADDLE BUG AND RN BRADLEY ENCOURAGING PATIENT TO TRY AND URINATE AFTER DINNER "I'LL TRY" CALL LIGHT IN REACH
--- NOTE | 2017-12-22 18:55 | NUR ---
PT HERE FOR R HIP REPLACEMENT AND NOW ILLEUS. PT TRANFERED TO SWING BED TODAY. PRN PAIN MEDICATION. SCHEDULED TYLENOL DC'D TODAY, NOW ALTERNATING NORCO AND OXYCODONE. PHYSICAL THERAPY TODAY. FULL LIQUID DIET. PT USING CALL LIGHT APPROPRIATLY.
--- NOTE | 2017-12-22 19:02 | NUR ---
this rn to room to check on pt. PT REPORTS 5/10 PAIN " LONG I'M NOT MOVING." SEE MAR FOR MEDICATION GIVEN. BED RAILS UP. CALL LIGHT WITHIN REACH.
--- NOTE | 2017-12-22 19:20 | NUR ---
RECEIVED REPORT FROM FIFI HUERTA RN. PT IN BED WATCHING TV. CALL LIGHT WITHIN REACH. SCD'S, HEEL PROTECTOR, TEDS AND CRYOCUFF IN PLACE.
--- NOTE | 2017-12-22 22:00 | NUR ---
ASSESSMENT COMPLETE. FRESH WATER GIVEN. DISCUSSED HIS DAY, PAIN HOME LIFE. AWARE THAT WALKING IS IMPORTANT TO GET HIM TO BEING ABLE TO EAT FOOD. BOWEL SOUNDS ACTIVE. STATES PASSING GAS STILL. MED WITH OXYCODONE AT THIS TIME WELL PER HIS REQUEST. HAS NO OTHER NEEDS AT THIS TIME.
--- NOTE | 2017-12-22 23:56 | NUR ---
PT WITH RIGHT ARM UP OVER HIS FOREHEAD, EYES CLOSED, RESP EVEN AND UNLABORED.
--- NOTE | 2017-12-23 01:20 | NUR ---
PT CALLED REQUESTED HIS IV BE "TIED DOWN". THE TAPE HAD COME LOOSE. WRAPPED WITH COBAN. PT STATES HE WAS ASLEEP FOR AWHILE BUT NOT AWAY. SUGGESTED HE SHUT HIS TV OFF SINCE HE DOESN'T SLEEP WITH TV ON AT HOME, AND PERHAPS HE WOULD BE ABLE TO SLEEP. HE DID SHUT TV OFF. TURNED ROOM HEAT DOWN TO 72 FROM 74 WELL. CALL LIGHT WITHIN REACH. NO OTHER NEEDS.
--- NOTE | 2017-12-23 04:15 | NUR ---
PT WITH EYES CLOSED, RESP EVEN AND UNLABORED. DESPITE REPOSITIONING PT MORE CENTERED IN BED, HE TENDS TO LEAN OVER TO THE LEFT. HAS NOT USED CALL LIGHT SINCE HE WANTED TO HAVE THE IV RESECURED.
--- NOTE | 2017-12-23 05:09 | NUR ---
CHECKED IN ON PT. EYES CLOSED, RESP EVEN AND UNLABORED. TV CONTINUES TO BE OFF.
--- NOTE | 2017-12-23 06:36 | NUR ---
PT SLEPT WELL THROUGHOUT THE NIGHT, REQUIRED OXYCODONE 10 MG ONCE NEAR 2130; VOIDED 2 TIMES. PLEASANT, COOPERATIVE, ENCOURAGED TO AMBULATE THROUGHOUT THE DAY. STATES HE IS PASSING GAS; SL FLUSHES WELL. SATING WELL ON ROOM AIR.
--- NOTE | 2017-12-23 07:30 | NUR ---
BLOOD SUGAR TAKEN AND PATIENT SET UP FOR BREAKFAST. PATIENT LEANING TOWARD THE LEFT, STATING HIS RIGHT LEG IS REALLY ACHING. RN BRADLEY IN ROOM- ENCOURAGED HIM TO SIT UP STRAIGHT CALL LIGHT IN REACH NO OTHER NEEDS
--- NOTE | 2017-12-23 07:54 | NUR ---
PT REPORTING 5/10 PAIN. SEE MAR FOR MEDICATION GIVEN. PT EATING BREAKFAST. PT STATES HE HAS NO ADDITIONAL REQUESTS OR COMPLAINTS AT THIS TIME.
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
--- NOTE | 2017-12-23 09:40 | NUR ---
PT FINISHED WITH PHYSICAL THERAPY. THIS RN TO ROOM FOR MORNING ASSESSMENT AND MEDICAITONS. PT ASSESSED, CMS INTACT. DRESSINGS CDI. PT REPORTS 5/10 PAIN THAT "IS WORSE IF I MOVE." PT ENCOURAGED TO STAY UP IN CHAIR UNTIL MD COMES TO VISIT. PT IS EXPRESSES FRUSTRATION, "i HATE THIS DAMN CHAIR. I JUST WANT TO LIE IN BED." PT AGREES TO STAY IN CHAIR FOR A LITTLE BIT. BED SHEETS NOTED TO BE SATURATED. PT ASKED IF HIS DEPENDS IS WET AND ENCOUARGD TO VOID. PT REPLYS "I'M NOT CHECKING MY DEPENDS, THATS YOUR JOB." PT REMINDED THAT HE WILL NEED TO BE ABLE TO TAKE CARE OF HIMSELF BEFORE GOING HOME. PT CHECKS DEPENDS AND STATES THEY ARE NOT WET. THIS RN CHECKS AND FINDS THEY ARE WET. DEPENDS CHANGED. PT ENCOURGED TO VOID, PT REFUSES. CALL LIGHT WITHIN REACH. CRYO CUFF IN PLACE.
--- NOTE | 2017-12-23 10:11 | NUR ---
PATIENT UP IN ROOM WITH P/T. BACK IN CHAIR, LEGS ELEVATED WITH ICE PACK ON RT LEG. LINENS AND GOWN CHANGED. CALL LIGHT IN REACH
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
--- NOTE | 2017-12-23 11:20 | NUR ---
PATIENT UP IN CHAIR. CRYO CUFF PLACED ON HIP
--- NOTE | 2017-12-23 11:51 | NUR ---
MEDICATION DUE. THIS RN TO BEDSIDE. PT UP TO CHAIR EATING LUNCH. REPORTS 5/10 PAIN. SEE MAR FOR MEDICATION GIVEN. PT STATES HE HAS NO REQUESTS OR COMPLAINTS AT THIS TIME. CALL LIGHT WITHIN REACH.
--- NOTE | 2017-12-23 12:35 | NUR ---
THIS RN TO BEDSIDE. PT BACK FROM PHYSICAL THERAPY. SKIN ASSESSED, PER PHYSICAL THERAPY REQUEST. STAGE 1 PRESSURE ULCER TO LEFT BUTTOX. BARIER CREAM AND ALLEVYN APPLIED. PT ATTEMPTS TO HAVE BM. ONLY MUCOUS NOTED. PT BACK TO BED. CRYO CUFF. ABDUCTOR PAD, SCDS, AND HEEL PROTECTORS REAPPLIED. PHYSICAL THERAPIST NOTES THAT PT IS ABDUCTING RIGTH LEG AND HAVING TROUBLE KEEPING LEG STRAIGHT EVEN WHEN WALKING. PT ASKED TO ADDUCT LEG PT CRIES OUT IN PAIN. PT RESTING IN BED. BED RAILS UP. CALL LIGHT IN REACH. BELONGINGS IN REACH.
--- NOTE | 2017-12-23 13:24 | NUR ---
patient sleeping, call light in reach
--- NOTE | 2017-12-23 13:30 | NUR ---
PATIENT AWAKE IN BED, VITALS AND I/OS CHARTED. PATIENT REQUESTED MORE GLYCERIN SWABS CALL LIGHT IN REACH
--- NOTE | 2017-12-23 14:21 | NUR ---
THIS RN TO ROOM TO CHECK ON PT. PT RESTING WITH EYES CLOSED, RR = 18 BPM. MD HAS NOT COME TO SEE PT. MD CALLED AND STATES HE WILL BE IN TOMORROW. MD UPDATED REGARDING PHYSICAL THERPAY CONCERNS AND PAIN STATUS. NO ADDIITONAL ORDERS AT THIS TIME. BED RAILSUP. CALL LIGHT WITHIN REACH.
--- NOTE | 2017-12-23 15:33 | NUR ---
THIS RN TO ROOM TO CHECK ON PT. PT RESTING WITH EYES CLOSED. AWAKENS TO MOVMENTS IN THE ROOM. PT REPORTS 5/10 PAIN (SEE MAR FOR MEDICATION GIVEN). PT CONTINUES TO ADDUCT RIGHT HIP LEG. EDUCATION DONE. PT VERBALIZES UNDERSTANDING BUT IS UNABLE TO DEMONSTARTED MOVING HIS HIP. ABDUCTOR PAD READJUSTED. CMS INTACT. BOTH DRESSINGS REMAIN CDI. PT RESTING IN BED. NO REQUESTS OR COMPLAINTS AT THIS TIME. BED RAILS UP. CALL LIGTH WITHIN REACH. CRYO CUFF, SCDS IN PLACE. PT SUPPORTED IN CORRECT POSITION WITH PILLOWS.
--- NOTE | 2017-12-23 17:00 | NUR ---
PATIENT IN SHOWER, NAOMY MCQUEEN ASSISTING. THIS ASSOCIATE PROFESSOR OF PHILOSOPHY CHANGED DRAW SHEET AND PILLOW CASES, REFILLED CRYO CUFF AND GAVE FRESG\H ICE WATER
--- NOTE | 2017-12-23 18:45 | NUR ---
PT HERE FOR RIGHT HIP REPLACEMENT AND NOW ILLEUS. PT UP X3 TODAY, TWICE WITH PHYSICAL THERAPY. PT INCONTONANT TODAY X3. PRN PAIN MEDICAITON. FULL LIQUID DIET. NEW PRESSURE ULCER TO LEFT BUTTOX, ALLEVY APPLIED. RIGHT KNEE BEGAIN BLEEDING TODAY, MD AWARE, MEPLEX AND JADYN WRAP APPLIED PER MD ORDER. PHYSICAL THERAPY REPORTS PT IS HAVING TROUBLE WITH ADDUCTING HIS RIGTH HIP. MD AWARE. PT USING CALL LIGHT APPROPRIATLY.
--- NOTE | 2017-12-23 18:59 | NUR ---
THIS RN TO ROOM. ABDUCTOR PAD AND CRYO CUFF NOT IN PLACE. PT HAS LEGS CROSSED. PT EDUCATION DONE REGARDING POSITIONING OF HIS HIP AND THE IMPORTANCE OF KEEPING HIP/LEG STRAIGHT. PT VERBALIZES UNDERSTANDING BUT IS RELUCANT TO MOVE. ABDUCTOR PAD REPLACED. CRYO CUFF REPLACED. BED RAILS UP. CALL LIGHT WITHIN REACH.
--- NOTE | 2017-12-23 19:10 | NUR ---
RECEIVED REPORT FROM CHRISTINA HUERTA. PT IN BED, WATCHING TV. CALL LIGHT WITHIN REACH.
--- NOTE | 2017-12-23 20:22 | NUR ---
VITALS AND I&OS DONE AND CHARTED. FRESH WATER GIVEN, URINAL EMPTIED. BEDSIDE TABLE AND CALL LIGHT WITHIN REACH.
--- NOTE | 2017-12-23 22:15 | NUR ---
ASSESSMENT COMPLETE. SL FLUSHES WELL, IN 90'S RA, WEDGE SECRURED BETWEEN LEGS, JANNIE HOSE IN PLACE, ABOVE KNEE. SCD'S, HEEL PROTECTORS IN PLACE, CRYO WITH FRESH ICE. PT WATER REPLACED. NOTE THAT PT STATES HIS STOMACH FEELS "LESS HARD, THINK IT IS SOFTER", SAYS HE IS PASSING GAS STILL. BOWEL SOUNDS HYPOACTIVE, PRIOR SHIFT THIS NURSE WORKED, BOWELS WERE ACTIVE. PT AWARE THAT HE NEEDS TO BE UP WALKING MORE, BUT SAYS MY HIP AND KNEE (RIGHT) HURT, BUT STATES HE KNOWS THAT HE NEEDS TO. LOWELY MOVITVATED, PERFERS TO LAY IN BED, VS BEING UP IN CHAIR, PER REPORT FROM DAY NURSE, HE DOESN'T WISH TO WALK LIKE HE SOULD BE. RIGHT FOOT SLIGHTLY ABDUCTED, AND REPOSITIONED WITH PAIN COMPLAINT FROM PT, HE STATES IT JUST HAPPENS THAT WAY. ASKED PT IF PRIOR TO SURGERY, HE WALKED WITH FOOT SLIGHTYLY ABDUCTED, HE SAID AARTI. PT HAS NO OTHER COMPLAINTS, FOUND HIM TO BE PLEASANT, COOPERATIVE WITH A LESS THAN CHEERY VERBALIZATION, OFTEN COMPLAINING OR MAKING COMMENTS ABOUT WHAT WAS ON TV, R/T TO "BLACKS AND VENEGAS'S". TENDS TO SOUND GRUMPY AT TIMES. OFFERS NO OTHER COMLAINTS, CALL LIGHT WITHIN REACH.
--- NOTE | 2017-12-24 00:02 | NUR ---
PT WITH EYES CLOSED, RESP EVEN AND UNLABORED.
--- NOTE | 2017-12-24 02:24 | NUR ---
TEMPERATURE TAKEN BY MOUTH AND CHARTED. INFORMED HIS RN BARTOLO. FRESH ICE WATER GIVEN. ADDED FRESH ICE TO CRYO. BEDSIDE TABLE AND CALL LIGHT WITHIN REACH.
--- NOTE | 2017-12-24 02:25 | NUR ---
PT WAS WOKE UP TO TRY TO USE THE URINAL, AND A TEMP BY TUBE COVERER. PT OFFERED NO COMPLAINTS, THIS NURSE HAD CHECKED IN ON HIM NEAR 0205 AND HE WAS SLEEPING.
--- NOTE | 2017-12-24 04:00 | NUR ---
PT WITH EYES CLOSED, RESP EVEN AND UNLABORED. PT HAS TAKEN HIS COVERS OFF COMPARED TO AT 0200 WHEN HE WAS COVERED UP. SCD'S, WEDGE, JANNIE HOSE, CRYO, HEEL PROTECTORS IN PLACE. CALL LIGHT WITHIN REACH.
--- NOTE | 2017-12-24 06:20 | NUR ---
MINIBUS DRIVER AND RN ASSISTED PT UP TO THE BATHROOM, MOD ASSISTANCE GETTING LEGS OFF THE BED, AND STANDING POSITION. COMPLAINT OF PAIN WHEN HE FIRST STARTED WALKING WITH THE FWW, LARGE AMOUNTS OF BELCHING HAVE OCCURRED SINCE GETTING UP, ONCE PT SAT ON TOILET, HE IMMEDIATELY HAD LOOSE SOUNDING STOOL, LARGE AMOUNT OF GAS EXPELLED.
--- NOTE | 2017-12-24 06:23 | NUR ---
SLEPT WELL, HAD NORCO FOR PAIN X 1; NO NAUSEA, DID NOT URINATE UNTIL THIS TIME (623) AFTER CUSTOMER SERVICE COORDINATOR AND THIS NURSE ASSISTED PT WITH MODERATE HELP UP TO BATHROOM. HAS PASSED EXTREME LARGE AMOUNTS OF GAS EXPELLED, BELCHED MANY, MANY TIMES WELL. TOLERATED AMBULATION WITH SOME COMPLAINT OF PAIN WHEN HE FIRST STARTED WALKING. CONTINUES ON FULL LIQUID DIET.
--- NOTE | 2017-12-24 06:35 | NUR ---
HELPED PT TO THE BATHROOM AND BACK TO BED WITH HIS FWW, WITH THE HELP FROM CHRISTINA MCFARLAND. FRESH ICE FOR CRYO. EMPTIED ALL GARBAGES. BEDSIDE TABLE AND CALL LIGHT WITHIN REACH.
--- NOTE | 2017-12-24 06:42 | NUR ---
med with 2 oxycodone, for 8/10 right knee pain. states that the knee hurts much more than the hip, even though the hip does hurt. Abdomen soft, with active bowel sounds, compared to firm at the begining of shift with hypoactive bs. voided 900.
--- NOTE | 2017-12-24 07:00 | NUR ---
HANDOFF REPORT RECEIVED FROM SENIOR WEB ENGINEER RN. PT RESTING IN BED. PT DENIES NEEDS AT THIS TIME.
--- NOTE | 2017-12-24 07:38 | NUR ---
PER DR. ACEVEDO VERBAL ORDER JANNIE ABBOTT REMOVED. PT RESTING IN BED. PT DENIES NEEDS AT THIS TIME.
--- NOTE | 2017-12-24 08:54 | NUR ---
DID BLOOD SUGAR CHECK
--- NOTE | 2017-12-24 11:13 | NUR ---
GOT HIM AN ICE PACK ALSO FILLED HIS CRYO. REFILLED HIS CUP WITH ICE WATER. CHANGED BED LINENS.
--- NOTE | 2017-12-24 12:15 | NUR ---
PT BLOOD GLUCOSE 188, GIVEN 2 UNITS SS NOVOLOG. PT RESTING IN BED. PT DENIES OTHER NEEDS AT THIS TIME.
--- NOTE | 2017-12-24 13:28 | NUR ---
PT SITTING IN CHAIR, READING PAPER. PT STATED THAT HIS KNEE HURTS MORE THAN HIS HIP DOES NOW. PT SEEMED TO BE IN BETTER SPIRITS, LATER WAS UP WITH P.T., AND HE SAID HE WAS OK. P.T. STATED THAT HE WAS NOT STIFF YESTERDAY. WILL CONTINUE TO FOLLOW NEEDED
--- NOTE | 2017-12-24 13:59 | NUR ---
PT WITH MEDIUM BROWN LOOSE STOOL. PHYSICAL THERAPY IN ROOM TO WORK WITH PT. PT RATING PAIN 6/10 AT THIS TIME, PLAN FOR PAIN MEDICATION AFTER PHYSICAL THERPAY.
--- NOTE | 2017-12-24 15:00 | NUR ---
PT RATING PAIN 7-8/10 TO RIGHT KNEE, CURRENTLY WORKING WITH OCCUPATIONAL THERAPY. GIVEN 10 MG OXYCODONE. PT DENIES OTHER NEEDS AT THIS TIME.
--- NOTE | 2017-12-24 18:42 | NUR ---
PT ON ROOM AIR, LUNG SOUNDS CLEAR. PT TOLERATING FULL LIQUID DIET, DENIES NAUSEA, BOWEL TONES ACTIVE, HAD MULITPLE LOOSE BROWN STOOLS TODAY. PT UP WITH 1PA WITH FWW. PAIN CONTROLLED WITH PRN OXYCODONE. PT WORKED WITH PT/OT. VOIDING QS, WILL RETAIN AND THEN VOIDS LARGE AMOUNT AT A TIME. PER DR. ACEVEDO NO JANNIE HOSE. SCDS, CRYOCUFF, ABDUCTOR WEDGE. PT SALINE LOCKED.
--- NOTE | 2017-12-24 19:41 | NUR ---
PATIENT RESTING QUIETLY IN BED WATCHING TV. WILL BE BACK TO EVALUATE PATIENT PATIENT FURTHER AFTER THIS RN IS FINISHED GETTING REPORT.
--- NOTE | 2017-12-24 21:15 | NUR ---
PM ASSESSMENT DONE. PATIENT GIVEN 10MG PO OXYCODONE FOR PAIN OF 8/10 WITH MOTION. PATIENT'S CALL LIGHT IN REACH.
--- NOTE | 2017-12-24 21:19 | NUR ---
VITALS DONE AND CHARTED. FRESH ICE IN CRYO. BEDSIDE TABLE AND CALL LIGHT WITHIN REACH.
--- NOTE | 2017-12-24 22:30 | NUR ---
PATIENT AMBULATED AROUND THE NURSES STATION WITH FWW AND 1PSBA AND GAIT BELT AND TOLERATED WELL BUT HAD A LARGE LIDUID BM IN ATTENDS BEFORE GETTING BQCK TO BED. ATTENDS CHANGED, GOWN CHANGED, SCD'S CHANGED, LINEN CHANGED, AND PATIENT BACK IN BED. PATIENT HAS SCD'S ON AND ORTHO WEDGE BETWEEN HIS LEGS. PATIENT'S CALL LIGHT IN REACH.
--- NOTE | 2017-12-24 22:51 | NUR ---
HELPED PT GO FOR A WALK IN THE [facility] WITH HIS WALKER AND GAIT BELT. WE WERE GOING INTO THE BATHROOM IN HIS ROOM. HIS ATTENDS STARTED LEAKING LIQUID BM ON THE FLOOR. GOT HIM TO THE TOILET. CHANGED HIS GOWN ,SCD'S, SOCKS AND ATTEND. CLEANED HIM UP WITH BABY WIPES WHEN HE WAS DONE. CHRISTINA DURANT GOT HIM BACK TO BED. ALSO CLEANED UP THE FLOOR WITH RED WIPES.
--- NOTE | 2017-12-25 00:15 | NUR ---
PATIENT RESTING QUIETLY WITH EYES CLOSED, RESPIRATIONS EVEN AND REGULAR, VINCE'S CALL LIGHT IS IN REACH.
--- NOTE | 2017-12-25 02:08 | NUR ---
PATIENT CALLED AND WAS ASSISTED UP TO THE BATHROOM WITH FWW AND VOIDED 800MLS. PATIENT BACK TO BED. NEW ATTENDS ON. CRYO MACHINE ICE FILLED. SCD'S AND ORTHO WEDGE IN PLACE. PATIENT NOT IN NEED OF ANY PAIN MEDICATION AT THIS TIME. CALL LIGHT IS IN REACH.
--- NOTE | 2017-12-25 04:15 | NUR ---
PATIENT RESTING QUIETLY WITH EYES CLOSED, RESPIRATIONS EVEN AND REGULAR, AND PATIENT'S CALL LIGHT IS IN REACH.
--- NOTE | 2017-12-25 06:53 | NUR ---
PATIENT HAS HAD TORADOL 30MG IV X1 FOR PAIN LAST NIGHT AND NO C/O PAIN OTHER THAN THE ONE TIME. PATIENT USED CPAP FOR THE FIRST PART OF THE NIGHT AND THEN REFUSED TO WEAR IT FOR SEVERAL HOURS, BUT SAT STARTED TO DROP INTO THE MID 80'S AND WOKE THE PATIENT UP AND DISCUSSED THIS WITH HER AND SHE WORE THE CPAP FOR THE LAST SEVERAL HOURS OF THE SHIFT AND SATS STAYED ABOVE 95%. PATIENT PEG TUBE DRESSING REMAINS CLEAN DRY AND INTACT. PEG TUBE IRRIGATED WITH 50 MLS OF WATER WITH NO RESIDUAL AT 2200 AND 0600. PATIENT'S IV CONTINUES TO INFUSE AT NS AND IV SITES ARE WNL. PATIENT HAS COARSE LUNG SOUNDS THROUGHOUT WITH EXPIRATORY WHEEZES IN THE UPPER LOBES BILAT AND DEMINISHED IN THE LOWER LOBES BILAT. PATIENT'S CALL LIGHT IS WITHIN REACH AND THE HEAD OV HER BED REMAINS ELEVATED.
--- NOTE | 2017-12-25 07:20 | NUR ---
HANDOFF REPORT RECEIVED FROM ELEMENTARY SCHOOL COUNSELOR RN. PT RESTING IN BED. PT ASSISTED WITH ORDERING BREAKFAST. PT DENIES NEEDS AT THIS TIME.
--- NOTE | 2017-12-25 07:30 | NUR ---
PATIENT MEDICATED FOR PAIN ONCE PRIOR TO AMBULATING AROUND MED/SURGUNIT BEFORE BED. PATIENT HAS NOT NEEDED ANY OTHER PAIN MEDICATION THE REST OF THE NIGHT PATIENT HAD ONE LARGE BROWN LIQUID STOOL INCONTINENCE ATTHE END OF AMBULATION AND WAS CLEANED UP AND LINENES AND GOWN CHANGED. PATIENT HAS ON CLEAN ATTENDS . VOIDED ONCE AFTER BEDTIME 800MLS IN THE URINAL. PATIENT HAS HAD SCD'S AND ORTHO WEDGE IN PLACE ALL NIGHT. IV STILL FLUSHES FINE AND IS WNL. LUNGS CLEAR. PATIENT APPEARED TO HAVE SLEPT WELL MOST OF THE NIGHT.
--- NOTE | 2017-12-25 07:52 | NUR ---
1 PERSON ASSIST WITH FWW TO CHAIR FOR BREAKFAST. LEGS ELEVATED. CALL LIGHT IN REACH
--- NOTE | 2017-12-25 08:40 | NUR ---
PT SITTING IN CHAIR, EATING BREAKFAST. PT ON ROOM AIR, LUNG SOUNDS CLEAR. PT RATING PAIN 5/10 AT THIS TIME, PT PAIN MOSTLY IN RIGHT KNEE, LESS PAIN IN HIP, GIVEN 10 MG OXYCODONE IN PREPARATION FOR THERAPY. PT TOLERATING FULL LIQUID DIET, DENIES NAUSEA, BOWEL TONES ACTIVE, PT REQUESTING TO ADVANCE TO REGULAR DIET TODAY, REFUSING TO TAKE MIRALAX AT THIS TIME, WILL DISCUSS WITH MD. PT CMS INTACT, PULSES PALPABLE, SLIGHT EDEMA IN RIGHT LEG. CRYOCUFF AND SCDS IN PLACE. DRESSING TO RIGT HIP CDI, DRESSING TO RIGHT KNEE, CDI. PT DENIES OTHER NEEDS AT THIS TIME. DISCUSSED PLAN OF CARE FOR THE DAY.,
--- NOTE | 2017-12-25 10:44 | NUR ---
PATIENT AT EDGE OF BED, PT IN ROOM. VITALS AND I/OS CHARTED.
--- NOTE | 2017-12-25 12:00 | NUR ---
PT GIVEN 2 UNITS SS HUMALOG FOR BLOOD GLUCOSE 202. PT SITTING ON EDGE OF BED EATIGN LUNCH. PT DENIES NEEDS AT THIS TIME.
--- NOTE | 2017-12-25 12:47 | NUR ---
ASSISTED PATIENT BACK INTO BED. CRYO REFILLED AND PLACED ON HIP. CALL LIGHT IN REACH
--- NOTE | 2017-12-25 13:40 | NUR ---
PATIENT IN BED, SLEEPING. I/OS CHARTED.
--- NOTE | 2017-12-25 14:22 | NUR ---
PT ASLEEP, WILL FOLLOW UP AGAIN. GOD BLESS
--- NOTE | 2017-12-25 15:15 | NUR ---
PT COMPLETED WITH PHYSICAL THERPAY. PT RATINGPAIN 6/10 AT THIS TIME. PT STATES OVERALL PAIN IS MUCH IMPROVED TO RIGHT KNEE. GIVEN 10 MG OXYCODONE. PT DENIES OTHER NEEDS AT THIS TIME.
--- NOTE | 2017-12-25 17:45 | NUR ---
PT ASSISTED FROM BATHROOM BACK TO BED. PT WITH LARGE LOOSE BROWN BOWEL MOVEMENT, VOIDED 900 ML. PT REQUESTING [place], ORDERED. PT DENIES OTHER NEEDS AT THIS TIME.
--- NOTE | 2017-12-25 18:04 | NUR ---
PT ON ROOM AIR, LUNG SOUNDS CLEAR. PT ADVANCED TO ADA DIET, TOLERATING WELL, DENIES NAUSEA. PT REPORT THAT PAIN HAS IMPROVED, CONSISTENTLY RATING PAIN 5-6/10, 10 MG PRN OXYCODONE, ABLE TO PARTICIPATE IN THERAPY. SCDS, CRYOCUFF, ABDUCTOR WEDGE. DRESSING TO RIGHT HIP CDI, DRESSING TO RIGHT KNEE CDI. PT UP WITH SBA WITH FWW. PT VOIDING QS. PT CONTINUES TO HAVE LOOSE BOWEL MOVEMENTS, REFUSED MD KIRAN AWARE.
--- NOTE | 2017-12-25 19:45 | NUR ---
RECEIVED SHIFT REPORT AND PATIENT IS CURRENTLY RESTING QUIETLY IN HIS BED WATCHING TV AND IN NO DISTRESS. CALL LIGHT IS IN REACH.
--- NOTE | 2017-12-25 19:45 | NUR ---
CHARGE NURSE ROUNDING NOTE, PT WALKED WITH THIS RN UP TO ICU, THEN LONG HALLWAY AND BACK UP TOWARD FBC, THEN BACK TO ROOM, TOLERATED WELL. ONE PERSON ASSIST, GAIT BELT AND FWW. JADYN WRAP DRESSING R KNEE IN PLACE, DRESSING R HIP INTACT. GOOD CMS, BACK TO BED. CRYOCUFF TO R HIP, SCDS AND HEEL PROTECTORS BILAT, NO JANNIE HOSE. NO C/O PAIN, VERY COOPERATIVE AND MUCH BETTER EFFORT AND GAIT NOTED.
--- NOTE | 2017-12-25 20:46 | NUR ---
VITALS DONE AND CHARTED. FRESH ICE WATER GIVEN. BEDSIDE TABLE AND CALL LIGHT WITHIN REACH.
--- NOTE | 2017-12-25 21:25 | NUR ---
PATIENT LAYING IN BED WATCHING TV. PM MEDS GIVEN AND BLOOD SUGAR CHECKED. S/S INSULIN GIVEN FOR BS RESULT AND 1 PO NORCO GIVEN FOR 5/10 RT HIP AND RT KNEE PAIN. PATIENT WILL GOING WALKING SHORTLY WITH [facility] THER[facility]. CALL LIGHT IS IN REACH.
--- NOTE | 2017-12-25 22:15 | NUR ---
STOOD BY WITH PT HE WALKED THE [facility] W\HIS FWW.
--- NOTE | 2017-12-25 23:37 | NUR ---
PATIENT RESTING QUIETLY SUPINE,RESPIRATIONS REGULAR AND EVEN, NO S/S OF DISTRESS, CALL LIGHT IS IN REACH.
--- NOTE | 2017-12-26 00:38 | NUR ---
PATIENT CONTINUES TO REST QUIETLY, EYES CLOSED, RESPIRATIONS EVEN AND REGULAR. PATIENT'S CALL LIGHT IN REACH.
--- NOTE | 2017-12-26 02:00 | NUR ---
PATIENT CONTINUES TO BE RESTING QUIETLY, EYES CLOSED, SUPINE, RESPIRATIONS EVEN AND REGULAR, CALL LIGHT IS WITHIN REACH.
--- NOTE | 2017-12-26 03:51 | NUR ---
PATIENT RESTING QUIETLY SUPINE, EYES CLOSED, RESPIRATIONS EVEN AND REGULAR. CALL LIGHT IN REACH.
--- NOTE | 2017-12-26 05:54 | NUR ---
PATIENT HAS SLEPT WELL MOST OF THE SHIFT, BETTER THAN i HAVR EVER SEEN HIM DO. SCD'S ON ORTHO WEDGE HAS BEEN IN PLACE. PATIENT HAS NO IV, IT WAS DC'D. PATIENT HAS BEEN IN FAIRLY GOOD SPIRITS AND TOOK A GOOD WALK WITH FWW AND 1PSBA AROUND THE MED/SURG UNIT BEFORE BED TIME AND PATIENT ONLY NEEDED MEDICATION ONCE FOR PAIN JUST BEFORE STARTING HIS WALK IN THE EVENING. ALL AND ALL PATIENT HAS HAD A GOOD NIGHT.
--- NOTE | 2017-12-26 07:05 | NUR ---
BEDSIDE HANDOFF REPORT RECEIVED FROM BANQUET SUPERVISOR RN. PT RESTING IN BED. PT DENIES NEEDS AT THIS TIME.
--- NOTE | 2017-12-26 09:02 | NUR ---
pt called to say he had to go bathroom. NAOMY Calhoun and I responded, pt had had an accident. helpd pt to bathroom and cleaned him up. NAOMY Calhoun changed bed linens for me and cleaned floor. pt is back in bed Nurse Afsaneh is now in room doing her morning assesment
--- NOTE | 2017-12-26 10:03 | NUR ---
pt is resting in bed with call light in reach. pt agreed to shower, will return to do so after morning vitals are done
--- NOTE | 2017-12-26 12:07 | NUR ---
PT GIVEN 2 UNITS SS INSULIN FOR BLOOD GLUCOSE 190. PT SITTING ON EDGE OF BED, EATING LUNCH. PT DENIES NEEDS AT THIS TIME.
--- NOTE | 2017-12-26 12:57 | NUR ---
MD CALLED AND PROVIDED UPDATE ON PT CONDITION, PAIN, THERAPY GOALS AHVE BEEN MET. NO NEW ORDERS AT THIS TIME.
--- NOTE | 2017-12-26 14:40 | NUR ---
PT RATING PAIN 6/10 AT THIS TIME, REQUESTING PAIN MEDICATION, GIVEN 1 TAB NORCO. PLAN FOR PT TO WALK IN [facility] WITH NURSE AIDE THEN TO TAKE SHOWER. PT DENIES OTHER NEEDS AT THIS TIME.
--- NOTE | 2017-12-26 16:01 | NUR ---
pt walked one full lap in hallway, then pt showered with minimal assistance. pt returned to bed and is now resting safely with call light in reach.
--- NOTE | 2017-12-26 17:08 | NUR ---
DID PATIENT'S BLOOD SUGAR CHECK AND ALSO HELPED HIM SET UP ON THE SIDE OF HIS BED TO EAT HIS DINNER.
--- NOTE | 2017-12-26 17:32 | NUR ---
pt is sitting up on side of bed safely with call light in reach finishing his dessert.
--- NOTE | 2017-12-26 18:23 | NUR ---
PT HAD UNEVENTFUL DAY. PT ON ROOM AIR, LUNG SOUNDS CLEAR. PT TOLERATING ADA DIET, DENIES NAUSEA, BOWEL TONES ACTIVE, LOOSE BM TODAY. PT UP WITH SBA WITH FWW, WALKED IN [facility] WITH PT AND NURSING STAFF. PT SHOWERED TODAY. WITHOUT IV ACCESS. CRYOCUFF, SCDS, ABDUCTOR WEDGE. PT VOIDING QS. PT SHOULD DISCHARGE ON THURSDAY, DOES NOT HAVE TRANSPORTATION OR HELP UNTIL THURSDAY.
--- NOTE | 2017-12-26 21:33 | NUR ---
CHARGE NURSE ROUNDING NOTE:, PT WALKING HALLWAYS WITH ONE PERSON ASSIST, FWW AND GAIT BELT, TOLERATING WELL, WALKED UP TOWARDS ICU, LONG HALLWAYS, BACK TOWARDS OB DOORS, BACK AROUND MED SURG NURSING STATION AND BACK TO BED. TOLERATED WELL. NO C/O PAIN OR SOB, NO N/V.
--- NOTE | 2017-12-26 22:23 | NUR ---
pt ready for bed, no c/o pain, scd's on, ortho wedge in place patient going to try and go to sleep. cryo cuff ice full and in place. call light in reach.
--- NOTE | 2017-12-26 23:50 | NUR ---
PATIENT IS RESTING QUEITLY IN BED WITH HIS ARMS BEHIND HIS HEAD. EYES ARE CLOSED RESPIRATIONS EVEN AND REGULAR. CALL LIGHT IN REACH.
--- NOTE | 2017-12-27 00:52 | NUR ---
PATIENT RESTING QUIETLY, RESPIRATIONS EVEN AND REGULAR, CALL LIGHT IN REACH.
--- NOTE | 2017-12-27 03:06 | NUR ---
PATIENT RESTING QUIETLY SUPINE, EYES CLOSED, RESPIRATIONS EVEN AND REGULAR, AND CALL LIGHT IS IN REACH.
--- NOTE | 2017-12-27 04:29 | NUR ---
PATIENT REMAINS RESTING QUIETLY ON HIS BACK WITH EVEN AND REGULAR RESPIRATIONS AND EYES CLOSED. CALL LIGHT IS IN REACH.
--- NOTE | 2017-12-27 06:46 | NUR ---
PATIENT SLEPT WELL MOST OF THE NIGHT. PATIENT DID 2 LABS AROUND THE MED/SURG UNIT WITH HIS WALKER AND 1PSBA, BEFORE HE WENT TO BED. PATIENT VOIDING FINE AND HAD ONE LARGE LIQUID STOOL. PATIENT HAS NO IV AND TAKING PO FLUIDS WELL. NO DRESING TO PATIENT'S KNEE NOW, IT IS OPEN TO THE AIR. SCD'S, AND CRYO CUFFR REMAIN ON AT NIGHT WITH ORTHO WEDGE BETWEEN PATIENT'S LEGS. VS HAVE BEEN STABLE.
--- NOTE | 2017-12-27 07:44 | NUR ---
did blood sugar for patient, 130
--- NOTE | 2017-12-27 09:00 | NUR ---
PT SITTING UP AT EDGE OF BED EATING BREAKFAST. WHEN ASKED PAIN LEVEL PT STATES "WELL I ALWAYS HAVE SOME KIND OF PAIN." RATED RIGHT HIP PAIN 2/10. MEDICATED WITH PRN NORCO. ALERT AND ORIENTED. NO IV SITE. RIGHT HIP DRESSED WITH MEPILEX AND OPSITE, CRYO CUFF TO SITE. TEDS ON. CALL LIGHT WITHIN REACH.
--- NOTE | 2017-12-27 10:05 | NUR ---
PT WORKING WITH [employer].
--- NOTE | 2017-12-27 12:00 | NUR ---
PT SITTING UP AT EDGE OF BED EATING LUNCH. DENIES PAIN OR OTHER CONCERNS. DRESSING CDI. CALL LIGHT WITHIN REACH.
--- NOTE | 2017-12-27 16:50 | NUR ---
PT SBA WITH WALKER TO RESTROOM. PT AMB TO EDGE OF BED TO SIT UP AND EAT DINNER. DENIES PAIN OR OTHER CONCERNS.
--- NOTE | 2017-12-27 19:15 | NUR ---
pt resting at side of bed alert to voice and call light in reach. No concerns or requests voiced. Report received from CHRISTINA Alvarado.
--- NOTE | 2017-12-27 19:16 | NUR ---
pt cahnges position to supine in bed and scd's are in place and on. Dressing is cdi to right hip nad no redness noted to surrounding tissue.
--- NOTE | 2017-12-27 20:30 | NUR ---
CHARGE NURSE ROUNDING NOTE - PT WALKED WITH THIS RN 2X AROUND HALLWAYS, USES FWW, TOLERATED WELL. DRESSING TO R HIP INTACT, BACK TO BED, SCDS, HEEL PROTECTORS BILAT AND CRYOCUFF TO R HIP AREA IN PLACE, NO C/O PAIN OR SOB,
--- NOTE | 2017-12-27 22:30 | NUR ---
PT RESTING SUPINE IN BED, EYES CLOSED AND RESPIRATIONS EVEN AND UNLABORED. SCD'S, BILAT HEEL PROTECTORS AND CRYOCUFF IN PLACE. CALL LIGHT IN REACH. PT APPEARS TO BE IN NO DISTRESS.
--- NOTE | 2017-12-28 00:32 | NUR ---
PT RESTING SUPINE IN BED, EYES CLOSED AND RESPIRATIONS EVEN AND UNLABORED. SCD'S,HEEL PROTECTORS, CRYO CUFF TO RIGHT HIP IN PLACE CALL LIGHT IN REACH.
--- NOTE | 2017-12-28 03:20 | NUR ---
answered call light pt assisted up in bed to use urinal per pt request. 620 clear urine output. scd's, heel protectors and cryo cuff in place call light and ice water within reach. pt denies having any further concerns or requests.
--- NOTE | 2017-12-28 06:48 | NUR ---
PT HAS SLEPT THROUGHOUT MOST OF THIS SHIFT. DSG TO RIGHT HIP INCISION REMAINS CDI, NO REDNESS/WARMTH NOTED TO SURROUNDING TISSUE. PT STANDBY ASSIST WITH FWW TO RESTROOM. PT HAS HAD SCD'S, HEEL PROTECTORS AND CRYO CUFF IN PLACE. PT HAS DENIED PAIN/SOB THIS SHIFT.
--- NOTE | 2017-12-28 08:30 | NUR ---
PT SITTING UP IN RECLINER EATING BREAKFAST, GINI WELL. PT REPORTING 5/10 RIGHT HIP PAIN, MEDICATED WITH NORCO. PT DENIES NAUSEA OR OTHER CONCERNS. RIGHT HIP DRESSING CDI. BILATERAL LEG/FEET SWELLING, ENCOURAGED ELEVATION OF LOWER EXTREMITIES. PT ALERT AND ORIENTED. CALL LIGHT WITHIN REACH.
[2017-12-28] MEDS ORDERED: HYDROCODON-ACE1 EA11 PO (08:40)
[2017-12-28] MEDS ORDERED: ONDANSETRON ODT4 MG SL (08:41)
[2017-12-28] MEDS ORDERED: OXYCODONE HCL5 MG PO (08:41)
[2017-12-28] MEDS ORDERED: PREDNISONE20 MG PO (08:42)
--- NOTE | 2017-12-28 10:12 | NUR ---
SPOKE WITH PATIENT REGARDING TODAY DISCHARGE. PATIENT STATES HE IS "READY TO GET OUT OF HERE". PATIENT FEELS HE CAN GO HOME PLANNED. DISCUSSED THAT HE WILL HAVE OUTPATIENT THERAPY PLANNED AND A NEW APPOINTMENT IS BEING MADE TODAY FOR HIM AND HE WILL GET THAT INFORMATION WITH HIS DISCHARGE PAPERS. PT STATES GRANDSON WILL PICK HIM UP AND WILL COMING IN THE MORNING AND EVENING TO HELP HIM AT HOME. NO FURTHER QUESTIONS.
--- NOTE | 2017-12-28 11:10 | NUR ---
PT DRESSED IN PERSONAL CLOTHING INDEPENDENTLY.
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
--- NOTE | 2017-12-28 12:13 | NUR ---
RIGHT HIP DRESSING CHANGED PER MAIRA MENDIETA. REDRESSED WITH MEPILEX AND OPSITE.
--- NOTE | 2017-12-28 14:53 | NUR ---
ORDER AND CLINICALS FAXED TO [facility] [place] FAX [phone]. FAX CONFIRMATION RECEIVED.
== END 2017-12-28 12:33 | disposition home or self-care (01) | DRG 560 ==
LOC: MS 07:55
PROVIDERS: ADMIT Specialist
DX: Z47.1 Aftercare following joint replacement surgery (principal); N17.9 Acute kidney failure, unspecified; Z96.641 Presence of right artificial hip joint; E11.9 Type 2 diabetes mellitus without complications; I10 Essential (primary) hypertension; I25.10 Atherosclerotic heart disease of native coronary artery without angina pectoris; N40.0 Benign prostatic hyperplasia without lower urinary tract symptoms; M10.9 Gout, unspecified; Z88.0 Allergy status to penicillin; Z88.8 Allergy status to other drugs, medicaments and biological substances
CPT/HCPCS: 36415; 80048; 97110; 97116; 97163; 97166; 97530; 97535; G8987; G8988; J1815; J2920; J7512